=== PATIENT | female | born 1965 | race Caucasian/White ===

== ENCOUNTER 2019-11-17 16:38 | Outpatient (CLI) | payer MEDICARE, SELFPAY ==
--- NOTE | ~2019-11-17 | CT_ITS ---
EXAMINATION: CT abdomen pelvis w con INDICATION: Pelvic and perineal pain TECHNIQUE: Computed tomographic images of the abdomen and pelvis were obtained after the administrati on of 100 cc of Omnipaque 350 intravenous contrast. The dose-length product (DLP) was 1311.48 mGy-cm. Automated exposure control and iterative reconstruction technique were employed. COMPARISON: 09/06/2018 FINDINGS: There are changes of left pneumonectomy. The heart size is normal. There is a small sliding hiatal hernia. The gallbladder is surgically absent. There is focal fatty infiltration of the liver adjacent to the ligamentum teres. The spleen, pancreas, and adrenal glands are normal. The kidneys ar e unremarkable. No pathologically enlarged abdominal or pelvic lymph nodes are identified. There is n o free intraperitoneal gas or evidence of bowel obstruction. Colonic diverticulosis is present withou t evidence of diverticulitis. A bowel surgical anastomosis is again noted in the pelvis. There is mil d lumbar spondylosis. A small fat-containing umbilical hernia is noted. There are changes of hysterec ronda. No definite abnormality of the vaginal remnant or perineum is identified. IMPRESSION: 1. No CT correlate for the patient's symptoms. Reviewed, dictated and finalized at location A.
[2019-11-17 17:41] LABS: Hematocrit 43.6 % (37.0-47.0); Hemoglobin 14.7 g/dL (12.0-15.0); Mean Corpuscular HGB Conc 33.7 g/dl (32-36); Mean Corpuscular Hemoglobin 29.4 pg (26-34); Mean Corpuscular Volume 87.2 fl (80-100); Mean Platelet Volume 9.4 fl (7.4-10.4); Platelet Count Result 303 k/mm3 (150-375); Red Cell Distribution Width 13.2 % (11.5-14.5); White Blood Count 11.1 K/mm3 (4.5-10.0)
[2019-11-17 17:53] LABS: Blood Urea Nitrogen 18 mg/dL (7-17); Calcium 9.3 mg/dL (8.4-10.2); Carbon Dioxide 37 mmol/L (22-30); Chloride 98 mmol/L (98-107); Estimated Glomerular Filt Rate 58; Glucose 112 mg/dL (65-105); Potassium 3.8 mmol/L (3.4-5.0); Sodium 139 mmol/L (137-145)
== END 2019-11-17 16:39 | disposition home or self-care (01) ==
PROVIDERS: PCP Family Medicine; Visit Provider Physician Assistant Medical
DX: R10.2 Pelvic and perineal pain (principal); N95.0 Postmenopausal bleeding
CPT/HCPCS: 36415; 74177; 80048; 85027; Q9967

== ENCOUNTER 2019-11-26 15:15 | Outpatient (CLI) | payer MEDICARE, SELFPAY ==
--- NOTE | ~2019-11-26 | US_ITS ---
EXAMINATION: US pelvic complete w TV DATE: 11/26/2019 15:55 INDICATION: Peroneal pain. Vaginal bleeding. History of total hysterectomy. Comparison:07/12/2015 TECHNIQUE: Multiple transabdominal and endovaginal sonographic images of the pelvis performed. FINDINGS: The uterus and ovaries are surgically absent. No abnormal masses or fluid collections. IMPRESSION: 1. Unremarkable pelvic ultrasound status post total hysterectomy. Reviewed, dictated and finalized at location A.
== END 2019-11-26 15:16 | disposition home or self-care (01) ==
PROVIDERS: PCP Family Medicine; Visit Provider Physician Assistant Medical
DX: R10.2 Pelvic and perineal pain (principal); N95.0 Postmenopausal bleeding
CPT/HCPCS: 76830; 76856

== ENCOUNTER 2020-01-26 16:57 | Outpatient (CLI) | payer MEDICARE, SELFPAY ==
--- NOTE | ~2020-01-26 | XR_ITS ---
XR hip LT min 3V w AP pelvis 01/26/2020 17:33 Indication: Low back and left hip pain Procedure: AP portable view of the pelvis and 3 views left hip Comparison: No prior studies for comparison. Findings: No fracture or traumatic malalignment. Pelvic rings are intact. No significant soft tissue abnormality. Sacral foramen are symmetric. No foreign bodies. Impression: 1: No acute fracture. Reviewed, dictated and finalized at location A. Impression: 1: No acute fracture.
--- NOTE | ~2020-01-26 | XR_ITS ---
XR lumbar spine min 4V 01/26/2020 17:33 Indication: Low back pain Procedure: 5 views lumbar spine Comparison: No prior studies for comparison. Findings: There is mild levocurvature of the lumbar spine. There is disc narrowing at L4-5 and L5-S1. No fracture or traumatic malalignment. Pedicles are intact. Sacral foramen are symmetric. Impression: 1: Mild lumbar spondylosis. Reviewed, dictated and finalized at location A. Impression: 1: Mild lumbar spondylosis.
== END 2020-01-26 16:58 | disposition home or self-care (01) ==
LOC: ANHIMG 17:00
PROVIDERS: PCP Family Medicine; Visit Provider Family Medicine
DX: M79.605 Pain in left leg (principal); M47.896 Other spondylosis, lumbar region
CPT/HCPCS: 72110; 73502

== ENCOUNTER 2020-08-13 12:46 | Outpatient (CLI) | payer MEDICARE, SELFPAY ==
--- NOTE | ~2020-08-13 | XR_ITS ---
XR chest 2V 08/13/2020 13:08 Indication: Shortness of breath Procedure: PA and lateral views of the chest Comparison to multiple prior studies sequentially, with oldest reviewed study dated 11/05/2018. Comparison: Comparison to multiple prior studies sequentially, with oldest reviewed study dated 12/2018. Findings: There are surgical changes of left pneumonectomy. Right lung clear. No pleural effusion, ed jenny or pneumothorax. No acute osseous abnormality. Impression: 1: No acute cardiopulmonary disease. Reviewed, dictated and finalized at location B. 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
== END 2020-08-13 12:47 | disposition home or self-care (01) ==
PROVIDERS: PCP Family Medicine; Visit Provider Nurse Practitioner Family
DX: R06.02 Shortness of breath (principal); R07.89 Other chest pain
CPT/HCPCS: 71046

== ENCOUNTER 2020-09-30 13:43 | Outpatient (CLI) | payer MEDICARE, SELFPAY ==
--- NOTE | 2020-09-30 14:12 | ECHO_ITS ---
Patient Info Name: Drew Roche Age: 55 years : 1965 Gender: Female Ht: 67 in Wt: 245 lbs BSA: 2.34 m2 HR: 77 bpm BP: 118 / 78 mmHg Technical Quality: Good Exam Date: 09/30/2020 2:16 PM Exam Location: [facility] Patient Status: Outpatient Admit Date: 09/30/2020 Staff Ordering Physician: Jose Luis Wong DO Power Nut Runner Operator: Kristofer Miles RDCS, RT Attending Provider: Jose Luis Wong DO Referring Physician: Marvin LEWIS; Exam Type: CA echo doppler color flow Study Info Indications R06.09 - Other forms of dyspnea Complete two-dimensional, color flow and Doppler transthoracic echocardiogram is performed. Summary 1. Complete two-dimensional, color flow and Doppler transthoracic echocardiogram is performed. 2. Left ventricular chamber dimension is normal. 3. Left ventricular systolic function is normal, estimated at 60-65%. 4. There is mildly increased left ventricular wall thickness. 5. The left ventricular diastolic function is grade I diastolic dysfunction. 6. E/e' 8 is minimally elevated. 7. Right ventricular chamber dimension is mildly enlarged. 8. The mitral valve has mildly calcified annulus. 9. There is trace mitral valve regurgitation. 10. There is trace tricuspid valve regurgitation. 11. Mild pulmonary hypertension, estimated pulmonary arterial systolic pressure is 44 mmHg. 12. Normal inferior vena cava with <50% collapse upon inspiration consistent with elevated right atrial pressure, 10 mmHg. 13. There is trace circumferential pericardial effusion with mild amount located posteriorly. Left Ventricle E/e' 8 is minimally elevated. Left ventricular chamber dimension is normal. Left ventricular systolic function is normal, estimated at 60-65%. There is mildly increased left ventricular wall thickness. The left ventricular diastolic function is grade I diastolic dysfunction. Right Ventricle Right ventricular systolic function is normal with normal TAPSE 2.5 cm. Right ventricular chamber dimension is mildly enlarged. Left Atria Left atrial chamber dimension is normal. Right Atria Right atrial chamber dimension is normal. Aortic Valve The aortic valve is trileaflet. There is no aortic valve stenosis. There is no aortic valve regurgitation. Pulmonic Valve There is no pulmonic regurgitation. Mitral Valve The mitral valve has mildly calcified annulus. There is no mitral valve stenosis. There is trace mitral valve regurgitation. Tricuspid Valve There is trace tricuspid valve regurgitation. Mild pulmonary hypertension, estimated pulmonary arterial systolic pressure is 44 mmHg. Pericardium/Pleural There is trace circumferential pericardial effusion with mild amount located posteriorly. Inferior Vena Cava Normal inferior vena cava with <50% collapse upon inspiration consistent with elevated right atrial pressure, 10 mmHg. Aorta The aortic root size at the sinus of Valsalva is normal. Left Ventricular Outflow Tract Name Value Normal LVOT 2D LVOT Diameter 2.1 cm LVOT Doppler LVOT Peak Gradient 1 mmHg LVOT Mean Gradient 1 mmHg
== END 2020-09-30 13:44 | disposition home or self-care (01) ==
PROVIDERS: PCP Family Medicine; Visit Provider Internal Medicine Cardiovascular Disease
DX: R06.09 Other forms of dyspnea (principal)
CPT/HCPCS: 93306

== ENCOUNTER 2020-10-05 15:15 | Outpatient (CLI) | payer MEDICARE, SELFPAY ==
--- NOTE | 2020-10-08 12:47 | WPDHOLTEREM ---
Holter/Event Monitor Holter/Event Monitor Date of procedure: 10/05/20 Procedure Type: 48 hour holter monitor Indications: Dyspnea Conclusion: 1. 48 hour holter monitor on 10/05/20. 2. Underlying rhythm is sinus rhythm. HR range 45-138 bpm; average HR 89 bpm. 3. There are 63 premature supraventricular complexes. No supraventricular tachycardia. 4. No premature ventricular complexes. No ventricular tachycardia. 5. No sinoatrial or atrioventricular blocks. No significant pauses greater than 2 seconds. 6. Patient reports symptoms of tightness, racing heart rate which demonstrate sinus rhythm, HR range 75-94 bpm.
== END 2020-10-05 15:16 | disposition home or self-care (01) ==
LOC: ANHCARD 15:16
PROVIDERS: PCP Family Medicine; Visit Provider Internal Medicine Cardiovascular Disease
DX: R00.0 Tachycardia, unspecified (principal); R06.00 Dyspnea, unspecified
CPT/HCPCS: 93225; 93226

== ENCOUNTER 2020-10-26 12:14 | Outpatient (CLI) | payer MEDICARE, SELFPAY ==
--- NOTE | ~2020-10-26 | CT_ITS ---
EXAMINATION: CT abdomen pelvis w con DATE: 10/26/2020 12:39 INDICATION: Abdominal tenderness. Diffuse lower abdominal pain. TECHNIQUE: Computed tomography (CT) of the abdomen and pelvis was performed with 100 cc Omnipaque 350 intravenous contrast. The dose-length product was 1566.62 mGy-cm. Automated exposure control and ite rative reconstruction technique were employed. COMPARISON: CT dated 11/17/2019. FINDINGS: There are surgical changes consistent with left pneumonectomy. Right lung bases unremarkabl e. Heart size normal. No significant vascular abnormality. No lymphadenopathy. Small hiatal hernia. There are cholecystectomy clips. There is fatty infiltration of the liver. The spleen, adrenal glands and kidneys are unremarkable. There is fatty replacement of the pancreas. Nonobstructive bowel gas p attern. Colonic diverticulosis without evidence for diverticulitis. No acute osseous abnormality. The re is a surgical anastomosis in the pelvis. IMPRESSION: 1. No acute abdominal abnormality. Reviewed, dictated and finalized at location B.
[2020-10-26 13:04] LABS: Basophils Absolute Auto 0.1 K/mm3 (0.0-0.1); Basophils Percent Auto 0.6 % (0.2-1.2); Eosinophils Absolute Auto 0.2 K/mm3 (0-0.3); Hemoglobin 13.4 g/dL (12.0-15.0); Immature Granulocyte Absolute 0.03 K/mm3 (0.00-0.031); Immature Granulocyte Percent A 0.3 % (0-0.5); Lymphocytes Absolute Auto 2.75 K/mm3 (0.9-3.2); Lymphocytes Percent Auto 26.1 % (18.3-44.2); Mean Corpuscular HGB Conc 33.5 g/dl (32-36); Mean Corpuscular Hemoglobin 28.3 pg (26-34); Mean Corpuscular Volume 84.4 fl (80-100); Mean Platelet Volume 8.9 fl (7.4-10.4); Monocytes Absolute Auto 0.6 K/mm3 (0.1-0.6); Monocytes Percent Auto 5.6 % (2.6-8.5); Neutrophils Absolute Auto 6.9 K/mm3 (1.3-6.7); Neutrophils Percent Auto 65.4 % (45.5-73.1); Platelet Count Result 327 k/mm3 (150-375); Red Blood Count 4.74 M/mm3 (4.2-5.4); Red Cell Distribution Width 13.2 % (11.5-14.5); White Blood Count 10.6 K/mm3 (4.5-10.0)
[2020-10-26 13:15] LABS: Alanine Aminotransferase 18 U/L (4-35); Albumin Level 3.9 g/dL (3.5-5.1); Alkaline Phosphatase 147 U/L (38-126); Amylase 47 U/L (30-110); Anion Gap 2 mmol/L (8-16); Aspartate Amino Transferase 27 U/L (14-36); Bilirubin,Total 0.2 mg/dL (0.2-1.3); Blood Urea Nitrogen 14 mg/dL (7-17); Calcium 8.2 mg/dL (8.4-10.2); Carbon Dioxide 32 mmol/L (22-30); Chloride 102 mmol/L (98-107); Estimated Glomerular Filt Rate > 60; Glucose 96 mg/dL (65-105); Lipase 29 U/L (23-300); Sodium 136 mmol/L (137-145)
== END 2020-10-26 12:15 | disposition home or self-care (01) ==
LOC: ANHIMG 12:15
PROVIDERS: PCP Family Medicine; Visit Provider Nurse Practitioner Family
DX: R10.9 Unspecified abdominal pain (principal); R10.819 Abdominal tenderness, unspecified site; R19.7 Diarrhea, unspecified; Z87.19 Personal history of other diseases of the digestive system
CPT/HCPCS: 36415; 74177; 80053; 82150; 83690; 85025; Q9967

== ENCOUNTER 2021-03-04 11:57 | Outpatient (CLI) | payer MEDICARE, SELFPAY ==
[2021-03-04 12:34] LABS: Basophils Absolute Auto 0.1 K/mm3 (0.0-0.1); Basophils Percent Auto 0.6 % (0.2-1.2); Eosinophils Absolute Auto 0.2 K/mm3 (0-0.3); Eosinophils Percent Auto 1.8 % (0-4.4); Hematocrit 42.8 % (37.0-47.0); Hemoglobin 13.8 g/dL (12.0-15.0); Immature Granulocyte Absolute 0.05 K/mm3 (0.00-0.031); Immature Granulocyte Percent A 0.4 % (0-0.5); Lymphocytes Absolute Auto 3.01 K/mm3 (0.9-3.2); Lymphocytes Percent Auto 26.5 % (18.3-44.2); Mean Corpuscular HGB Conc 32.2 g/dl (32-36); Mean Corpuscular Hemoglobin 28.3 pg (26-34); Mean Corpuscular Volume 87.9 fl (80-100); Mean Platelet Volume 9.3 fl (7.4-10.4); Monocytes Absolute Auto 0.7 K/mm3 (0.1-0.6); Monocytes Percent Auto 6.4 % (2.6-8.5); Neutrophils Absolute Auto 7.3 K/mm3 (1.3-6.7); Neutrophils Percent Auto 64.3 % (45.5-73.1); Platelet Count Result 326 k/mm3 (150-375); Red Blood Count 4.87 M/mm3 (4.2-5.4); Red Cell Distribution Width 13.8 % (11.5-14.5); White Blood Count 11.4 K/mm3 (4.5-10.0)
[2021-03-04 13:00] LABS: Alanine Aminotransferase 21 U/L (4-35); Albumin Level 4.1 g/dL (3.5-5.1); Alkaline Phosphatase 152 U/L (38-126); Anion Gap 7 mmol/L (8-16); Aspartate Amino Transferase 23 U/L (14-36); Bilirubin,Total 0.4 mg/dL (0.2-1.3); Blood Urea Nitrogen 14 mg/dL (7-17); Calcium 8.6 mg/dL (8.4-10.2); Carbon Dioxide 30 mmol/L (22-30); Chloride 101 mmol/L (98-107); Cholesterol 180 mg/dL (0-200); Estimated Glomerular Filt Rate > 60; Glucose 111 mg/dL (65-110); HDL Direct 41 mg/dL; Sodium 138 mmol/L (137-145); Triglycerides 171 mg/dL (<150)
[2021-03-04 18:58] LABS: LDL Cholesterol Direct 102 mg/dL
== END 2021-03-04 11:58 | disposition home or self-care (01) ==
PROVIDERS: PCP Family Medicine; Visit Provider Physician Assistant Medical
DX: R00.0 Tachycardia, unspecified (principal); I51.89 Other ill-defined heart diseases; I27.20 Pulmonary hypertension, unspecified; Z13.220 Encounter for screening for lipoid disorders; Z13.6 Encounter for screening for cardiovascular disorders
CPT/HCPCS: 36415; 80053; 80061; 84443; 85025

== ENCOUNTER 2021-05-24 13:19 | Outpatient (CLI) | payer MEDICARE, SELFPAY ==
--- NOTE | ~2021-05-24 | XR_ITS ---
XR chest 2V 05/24/2021 13:46 Indication: Chronic obstructive pulmonary disease. Procedure: PA and lateral views the chest Comparison: Comparison to multiple prior studies sequentially, with oldest reviewed study dated 12/19. Findings: There are changes of left pneumonectomy. Right lung clear. No pneumonia, edema or effusion. No pneumothorax. Impression: 1: No acute cardiopulmonary disease. 2: Status post prior left pneumonectomy. Reviewed, dictated and finalized at location A. 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 2: Status post prior left pneumonectomy.
== END 2021-05-24 13:20 | disposition home or self-care (01) ==
LOC: ANHIMG 13:28
PROVIDERS: PCP Family Medicine; Visit Provider Internal Medicine Critical Care Medicine
DX: J44.9 Chronic obstructive pulmonary disease, unspecified (principal)
CPT/HCPCS: 71046

== ENCOUNTER 2021-07-19 09:38 | Outpatient (CLI) | payer MEDICARE, SELFPAY ==
--- NOTE | ~2021-07-19 | XR_ITS ---
EXAMINATION: XR shoulder LT min 2V EXAM DATE: 07/19/2021 09:59 INDICATION: M25.512 - Pain in left shoulder, worsening. Fall 2 mo ago. TECHNIQUE: The following left shoulder projections obtained: frontal projection with internal rotatio n, frontal projection with external rotation, Grashey, and scapular Y view (4+ views). There is no p rior study for comparison. FINDINGS: There is dense large calcification along the rotator cuff consistent with calcific tendinos is. No evidence of acute or subacute fracture. There is mild glenohumeral joint, moderate acromioclav icular joint primary osteoarthritis. Surgical defect left 6th rib, opacified hemithorax. IMPRESSION: 1. Large dense left rotator cuff calcific tendinosis. 2. Mild to moderate osteoarthritis. Reviewed, dictated and finalized at location B. 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
== END 2021-07-19 09:39 | disposition home or self-care (01) ==
LOC: ANHIMG 09:44
PROVIDERS: PCP Family Medicine; Visit Provider Physician Assistant Medical
DX: M19.012 Primary osteoarthritis, left shoulder (principal)
CPT/HCPCS: 73030

== ENCOUNTER 2021-10-11 15:54 | Outpatient (CLI) | payer MEDICARE, SELFPAY ==
[2021-10-11 16:45] LABS: Alanine Aminotransferase 25 U/L (4-35); Albumin Level 4.2 g/dL (3.5-5.1); Alkaline Phosphatase 164 U/L (38-126); Amylase 55 U/L (30-110); Anion Gap 6 mmol/L (8-16); Aspartate Amino Transferase 24 U/L (14-36); Bilirubin,Total 0.5 mg/dL (0.2-1.3); Blood Urea Nitrogen 15 mg/dL (7-17); Calcium 7.9 mg/dL (8.4-10.2); Carbon Dioxide 31 mmol/L (22-30); Chloride 101 mmol/L (98-107); Estimated Glomerular Filt Rate > 60; Glucose 108 mg/dL (65-110); Lipase 20 U/L (23-300); Potassium 3.5 mmol/L (3.4-5.0); Sodium 138 mmol/L (137-145)
[2021-10-11 16:55] LABS: Basophils Absolute Auto 0.1 K/mm3 (0.0-0.1); Basophils Percent Auto 0.7 % (0.2-1.2); Eosinophils Absolute Auto 0.2 K/mm3 (0-0.3); Eosinophils Percent Auto 1.8 % (0-4.4); Hematocrit 41.8 % (37.0-47.0); Hemoglobin 13.5 g/dL (12.0-15.0); Immature Granulocyte Absolute 0.04 K/mm3 (0.00-0.031); Immature Granulocyte Percent A 0.4 % (0-0.5); Lymphocytes Absolute Auto 2.89 K/mm3 (0.9-3.2); Lymphocytes Percent Auto 28.4 % (18.3-44.2); Mean Corpuscular HGB Conc 32.3 g/dl (32-36); Mean Corpuscular Volume 86.7 fl (80-100); Mean Platelet Volume 9.4 fl (7.4-10.4); Monocytes Absolute Auto 0.6 K/mm3 (0.1-0.6); Monocytes Percent Auto 6.3 % (2.6-8.5); Neutrophils Absolute Auto 6.4 K/mm3 (1.3-6.7); Neutrophils Percent Auto 62.4 % (45.5-73.1); Platelet Count Result 304 k/mm3 (150-375); Red Blood Count 4.82 M/mm3 (4.2-5.4); Red Cell Distribution Width 14.2 % (11.5-14.5); White Blood Count 10.2 K/mm3 (4.5-10.0)
== END 2021-10-11 15:55 | disposition home or self-care (01) ==
LOC: ANHLAB 15:59
PROVIDERS: PCP Family Medicine; Visit Provider Nurse Practitioner Family
DX: R10.9 Unspecified abdominal pain (principal); R19.7 Diarrhea, unspecified; R11.2 Nausea with vomiting, unspecified
CPT/HCPCS: 36415; 80053; 82150; 83690; 85025

== ENCOUNTER 2021-10-24 15:38 | Outpatient (CLI) | payer MEDICARE, SELFPAY ==
--- NOTE | ~2021-10-24 | US_ITS ---
EXAMINATION: US abdomen complete DATE: 10/24/2021 16:32 INDICATION: Left upper quadrant pain, nausea and vomiting TECHNIQUE: Multiple grayscale and Doppler ultrasound images of the abdomen were obtained. COMPARISON: CT, 10/26/2020 FINDINGS: Bowel gas obscures visualization of the pancreas. The pancreas appears to be echogenic, lik leidy due to fatty replacement.The liver demonstrates increased echogenicity, heterogenous echotexture, and decreased through transmission. No surface nodularity. Normal hepatopetal flow in the main ysabel l vein. The gallbladder is surgically absent. The common bile duct is not well demonstrated. There wa s no sonographic Miles sign. The visualized portions of the aorta and inferior vena cava are normal. The right kidney measures 11.6 x 5.6 x 4.6 cm. The left kidney measures 9.5 x 4.8 x 5.5 cm. The kidne ys demonstrate normal parenchymal echogenicity. There is no hydronephrosis. The spleen is normal in a ppearance and measures 12.7 cm. IMPRESSION: 1. No sonographic correlate for the patient's symptoms. Reviewed, dictated and finalized at location F.
== END 2021-10-24 15:39 | disposition home or self-care (01) ==
LOC: ANHIMG 15:40
PROVIDERS: PCP Family Medicine; Visit Provider Nurse Practitioner Family
DX: R10.12 Left upper quadrant pain (principal); R10.9 Unspecified abdominal pain; R11.2 Nausea with vomiting, unspecified; R74.8 Abnormal levels of other serum enzymes
CPT/HCPCS: 76700

== ENCOUNTER 2022-02-09 12:00 | Outpatient (CLI) | payer MEDICARE, SELFPAY ==
--- NOTE | ~2022-02-09 | XR_ITS ---
XR chest 2V DATE: 02/09/2022 12:14 INDICATION: Cough, bronchitis, pleural pain TECHNIQUE: PA and lateral views COMPARISON: 05/24/2021 PA and lateral chest FINDINGS: Status post left thoracotomy and pneumonectomy. Shift of the heart mediastinum leftward. Th ere is compensatory hyperinflation of the right lung, which appears clear. No right pleural effusion. Surgical clips, right upper quadrant of the abdomen. Osteopenia. IMPRESSION: Status post left thoracotomy and pneumonectomy No active cardiopulmonary disease or significant change since 05/24/2021 Reviewed, dictated and finalized at location B.
== END 2022-02-09 12:01 | disposition home or self-care (01) ==
LOC: ANHIMG 12:04
PROVIDERS: PCP Family Medicine; Visit Provider Nurse Practitioner Family
DX: R05.9 Cough, unspecified (principal); R07.81 Pleurodynia; Z98.890 Other specified postprocedural states
CPT/HCPCS: 71046

== ENCOUNTER 2022-08-11 11:17 | Outpatient (CLI) | payer MEDICARE, SELFPAY ==
[2022-08-11 12:05] LABS: Basophils Absolute Auto 0.1 K/mm3 (0.0-0.1); Basophils Percent Auto 0.8 % (0.2-1.2); Eosinophils Absolute Auto 0.2 K/mm3 (0-0.3); Eosinophils Percent Auto 1.9 % (0-4.4); Hematocrit 43.2 % (37.0-47.0); Hemoglobin 13.9 g/dL (12.0-15.0); Immature Granulocyte Absolute 0.07 K/mm3 (0.00-0.031); Immature Granulocyte Percent A 0.6 % (0-0.5); Lymphocytes Percent Auto 22.9 % (18.3-44.2); Mean Corpuscular HGB Conc 32.2 g/dl (32-36); Mean Corpuscular Hemoglobin 27.9 pg (26-34); Mean Corpuscular Volume 86.7 fl (80-100); Mean Platelet Volume 9.6 fl (7.4-10.4); Monocytes Absolute Auto 0.7 K/mm3 (0.1-0.6); Monocytes Percent Auto 6.1 % (2.6-8.5); Neutrophils Percent Auto 67.7 % (45.5-73.1); Platelet Count Result 297 k/mm3 (150-375); Red Blood Count 4.98 M/mm3 (4.2-5.4); Red Cell Distribution Width 14.2 % (11.5-14.5); White Blood Count 11.8 K/mm3 (4.5-10.0)
[2022-08-11 12:17] LABS: Alanine Aminotransferase 39 U/L (6-35); Albumin Level 3.9 g/dL (3.5-5.1); Alkaline Phosphatase 147 U/L (38-126); Anion Gap 5 mmol/L (8-16); Aspartate Amino Transferase 33 U/L (14-36); Bilirubin,Total 0.6 mg/dL (0.2-1.3); Blood Urea Nitrogen 10 mg/dL (7-17); Calcium 8.2 mg/dL (8.4-10.2); Carbon Dioxide 31 mmol/L (22-30); Chloride 102 mmol/L (98-107); Cholesterol 194 mg/dL (0-200); Estimated Glomerular Filt Rate > 60; Glucose 162 mg/dL (65-110); HDL Direct 34 mg/dL; Sodium 138 mmol/L (137-145); Triglycerides 254 mg/dL (<150)
[2022-08-11 12:27] LABS: LDL Cholesterol Direct 102 mg/dL
== END 2022-08-11 11:18 | disposition home or self-care (01) ==
LOC: ANHLAB 11:18
PROVIDERS: PCP Family Medicine; Visit Provider Family Medicine
DX: I50.30 Unspecified diastolic (congestive) heart failure (principal); K76.0 Fatty (change of) liver, not elsewhere classified; Z13.220 Encounter for screening for lipoid disorders; R73.03 Prediabetes
CPT/HCPCS: 36415; 80053; 80061; 82248; 84443; 85025

== ENCOUNTER 2024-01-18 14:30 | Outpatient (CLI) | payer MEDICARE, SELFPAY ==
--- NOTE | ~2024-01-18 | MR_ITS ---
EXAMINATION: MR brain/brain stem wo/w con DATE: 01/18/2024 15:56 INDICATION: Chronic left sided headache TECHNIQUE: Magnetic resonance imaging (MRI) of the brain and brainstem was performed without and with 20 mL Multihance intravenous contrast. Sequences included sagittal and axial T1-weighted SE, axial d iffusion-weighted FS SE, axial 3D SWAN, axial T2-weighted FLAIR, and axial T2-weighted FSE. Postcontr ast axial and coronal T1-weighted SE was obtained. Apparent diffusion coefficient (ADC) maps were cre ated. COMPARISON: CT dated 06/30/2015 FINDINGS: There are no areas of restricted diffusion to suggest acute infarction. Tiny focus of susceptibility artifact in the anterior right frontal lobe consistent with chronic blood products related to microhe morrhage most typically secondary to hypertension. No abnormal intracranial mass lesion. There are no intraparenchymal signal abnormalities seen on the other pulse sequences. The ventricles are symmetri c and normal in size. There are no abnormal extra-axial fluid collections. Flow voids are seen in the cerebral arteries on the T2-weighted sequences consistent with their expected patency. Mild mucosal thickening the bilateral anterior ethmoid sinuses. Visualized orbits and soft tissues are unremarkabl e. There are no areas of abnormal enhancement on the post contrast images. IMPRESSION: 1. No acute intracranial process or abnormally enhancing brain lesions. 2. Single punctate focus of susceptibility artifact in the right frontal lobe consistent with sequela of chronic microhemorrhage such as in the setting of hypertension. Reviewed, dictated and finalized at location A. IMPRESSION: 1. No acute intracranial process or abnormally enhancing brain lesions. 2. Single punctate focus of susceptibility artifact in the right frontal lobe c onsistent with sequela of chronic microhemorrhage such as in the setting of hyp ertension.
== END 2024-01-18 14:31 | disposition home or self-care (01) ==
LOC: ANHIMG 14:34
PROVIDERS: PCP Internal Medicine; Visit Provider Internal Medicine
DX: R51.9 Headache, unspecified (principal); G89.29 Other chronic pain
CPT/HCPCS: 70553; A9577

== ENCOUNTER 2024-12-11 12:58 | Emergency (ER) | payer MEDICARE, SELFPAY ==
--- NOTE | ~2024-12-11 | CT_ITS ---
CT chest abdomen pelvis w con Ordering provider: Mis Hayes PA-C History: 59 years Female with . g-tube site infection, upper abd pain . Comparison: October 26, 2020 Technique: CT chest with IV contrast. CT abdomen and pelvis CT abdomen and pelvis with IV and with or al contrast. Radiation reduction technique utilized.The dose-length product was 1648.61 mGy-cm. 100 m L Omnipaque 350 was given IV. FINDINGS: CHEST: --VISUALIZED THORACIC INLET: Normal. --MEDIASTINUM: Aorta/coronary arteries: The thoracic aorta is normal. Heart/other: The heart is not enlarged. The heart is shifted to the left side. Lymph nodes: No mediastinal or hilar adenopathy. --LUNGS: Status post left pneumonectomy. 3 mm nodule is seen in the right lung base anteriorly. Depen dent atelectasis is seen in the right lung bases posteriorly. No pulmonary masses. No infiltrates or effusions. No pneumothorax. --MUSCULOSKELETAL: Soft tissues: The superficial soft tissues are normal. Bones: Age appropriate degenerative changes of the spine. No suspicious bony lytic or sclerotic lesio ns. ABDOMEN/PELVIS: --MUSCULOSKELETAL: Bones: Age appropriate degenerative changes of the spine. No suspicious bony lytic or sclerotic lesio ns. Chronic compression of the superior endplate of L1 is noted. If Clinically suspicious MRI is advised. Hemangioma of T12 is noted. Superficial soft tissues: The superficial soft tissues are normal. --UPPER ABDOMINAL ORGANS: Liver: Fat infiltration. Gallbladder: Status post cholecystectomy. Spleen: Normal. Stomach/duodenum: Gastrostomy tube. Soft tissue density is seen in the anterior abdominal wall around the tube which may be inflammatory. Clinical correlation advised. Transabdominal definite collection seen. Small sliding hiatus hernia. Pancreas: Atrophic. Adrenals: Normal. Kidneys: Normal. --PELVIC ORGANS: The bladder is normal. No bladder stones. --BOWEL AND MESENTERY: Colon: No evidence of diverticulitis.. Appendix is not demonstrated. Small Bowel: Normal. No obstruction. Peritoneum/mesentery: No free air or free fluid. No mesenteric lymphadenopathy. --RETROPERITONEUM: Mild atheromatous disease of the abdominal aorta. No retroperitoneal lymphadenop athy. IMPRESSION: CHEST: 1. Status post left pneumonectomy. 2. 3 mm nodule seen in the right lung base posteriorly. [address] follow-up advised. ABDOMEN/PELVIS: 1. Minimal thickening of the soft tissues in the anterior abdominal wall around the gastrostomy tube which may be inflammatory. Clinical correlation and Follow-up advised. No intra-abdominal fluid nayeli ection seen. 2. No evidence of appendicitis, diverticulitis or intestinal obstruction. 3. Fat infiltration of the liver. 4. Small sliding hiatus hernia. 5. Atrophic pancreas. Reviewed, dictated and finalized at location A. IMPRESSION: CHEST: 1. Status post left pneumonectomy. 2. 3 mm nodule seen in the right lung base posteriorly. [address] follow-up ad vised. ABDOMEN/PELVIS: 1. Minimal thickening of the soft tissues in the anterior abdominal wall aroun d the gastrostomy tube which may be inflammatory. Clinical correlation and Foll ow-up advised. No intra-abdominal fluid collection seen. 2. No evidence of appendicitis, diverticulitis or intestinal obstruction. 3. Fat infiltration of the liver. 4. Small sliding hiatus hernia. 5. Atrophic pancreas.
[2024-12-11 13:01] VITALS: BP 138/74; PULSE 86; RESP 18; TEMP 37; O2SAT 98
--- OUTSIDE RECORDS SUMMARY | 2024-12-11 13:31 | XMS_ITS | Clinical Summary ---
Author Organization [facility] Address [address] [address] Phone Care Team Providers Care Stocklayer Name Role Phone Dalton Archibald DO Unavailable [phone] Tricia Skinner MD Unavailable [phone] Doug Gage MD Primary Care Provider Davon Scott MD Unavailable [phone] Ron Contreras MD Unavailable Cheng Schulz MD Unavailable Samantha Forman MD Unavailable [phone] Allergies Active Allergy Reactions Criticality Noted Date Comments Aspirin Swelling High 01/08/2017 Intubated for throat swelling, unclear if aspirin or ibuprofen related Metronidazole Hives High 12/01/2020 Ibuprofen Swelling High 01/08/2017 Intubated for throat swelling, unclear if aspirin or ibuprofen related Nsaids Anaphylaxis,Swelling High 12/01/2020 Medications gabapentin (NEURONTIN) 300 MG Capsule take 1 Capsule per G Tube 3 times daily. 11/17/19 17 Active fluticasone-salm eterol (ADVAIR) 500-50 MCG/DOSE AEROSOL POWDER, BREATH ACTIVATED take 1 Puff by inhalation 2 times daily. 01/12/20 17 Active dilTIAZem (CARDIZEM SR) 120 MG CAPSULE SR 12 HR 1 Capsule every morning. Gastric-tube 01/12/20 17 Active albuterol (PROVENTIL, VENTOLIN) (2.5 MG/3ML) 0.083% Nebulizer Soln 1 Vial by Nebulization route 4 times daily. 01/12/20 17 Active OXYGEN CONCENTRATOR by Does not apply route. Use as directed CURRENTLY TAKES 3 LITERS WHEN ACTIVE OR SLEEP OR O2 FALLS BELOW 90% Active Multiple Vitamin (MULTI-VITAMIN PO) by Gastric Tube route daily. Centrum A-Z for women Active EPINEPHrine (EPIPEN) 0.3 MG/0.3ML Solution Auto-injector 0.3 mL by Intramuscular route once as needed for Anaphylaxis for up to 1 dose. 1 mL 10/31/19 23 Active otherIndications :Dysphagia, unspecified type,Status post insertion of percutaneous endoscopic gastrostomy (PEG) tube ([facility]) Isosource 1.5, 138 units, may resume Jevity 1.2 when back in stock. This is due to they are not able to get Jevity 1.2. 138 Units 1 01/31/20 23 Active otherIndications :Dysphagia, unspecified type,Status post insertion of percutaneous endoscopic gastrostomy (PEG) tube ([facility]) wide port adaptor x2 a month. 2 Units 6 01/31/20 23 Active ascorbic acid (VITAMIN C) 250 MG Tablet Take 1 Tablet by mouth daily. Active albuterol 108 (90 Base) MCG/ACT Aerosol Solution take 2 Puffs by inhalation every 6 hours as needed for Wheezing. 8 g 10/03/19 24 Active pregabalin (Lyrica) 50 MG CapsuleIndicatio ns:Neuropathic pain Take 1 Capsule by mouth 3 times daily. 90 Capsule 2 03/13/20 24 Active Nutritional Supplements (Isosource 1.5 Shravan) Liquid by Gastric Tube route 3 times daily. 138 UNITS Active ergocalciferol (VITAMIN D) 81271 UNIT Capsule Take 1 Capsule by mouth once a week for 120 days. 16 Capsule 08/19/19 25 025 Active HYDROcodone-acet aminophen (NORCO) 7.5-325 MG Tablet take 1 tablet by mouth every 4 to 6 hours as needed for pain 09/06/19 25 Active furosemide (LASIX) 20 MG TabletIndication s:Systolic congestive heart failure, unspecified HF chronicity ([facility]) Take 1 Tablet by mouth 2 times daily (with meals). 180 Tablet 1 09/11/19 Active amoxicillin (AMOXIL) 400 MG/5ML Recon Suspension Take 6.3 mL by mouth 2 times daily for 10 days. 126 mL 11/08/19 25 025 Active Problems Problem Noted Date Diagnosed Date History of pneumonectomy left 05/17/2024 Paroxysmal atrial fibrillation 04/24/2024 Status post insertion of per cutaneous endoscopic gastrostomy (PEG) tube 04/24/2024 Chronic respiratory failure 12/18/2021 Chest pain, rule out acute myocardial infarction 12/17/2021 COPD (chronic obstructive pulmonary disease) PAH (pulmonary artery hypertension) 12/17/2021 History of atrial fibrillation 12/17/2021 Primary pulmonary hypertension 12/17/2021 Nontraumatic complete tear of left rotator cuff 09/01/2021 Leukocytosis (leucocytosis) 02/28/2018 Encounters Date Type Department Care Team Description 11/17/2024 Telephone [facility] [address] [place] [phone] Doug Gage MD Referral 11/10/2024 Telephone [facility] [address] [place] [address] Doug Gage MD Referral 11/07/2024 11:45 AM CDT Urgent Care Visit [facility] [address] [place] [phone] Barbara Leon APRN, SAVANNAH Respiratory infection (Primary Dx); Sore throat; Fever, unspecified fever cause Discharge Disposition: Discharged to home or Selfcare 11/07/2024 Travel 10/24/2024 9:45 AM CDT Office Visit [facility] [address] [place] [address] Doug Gage MD Esophageal dysfunction (Primary Dx) Discharge Disposition: Discharged to home or Selfcare 10/24/2024 Travel 09/12/2024 Results Follow-Up [facility] [address] [place] [address] Yanci Rebolledo APRN, CNP XR LUMBAR SPINE MINIMUM 4 VIEWS 09/10/2024 3:45 PM CDT - 09/10/2024 11:59 PM CDT Hospital Encounter [facility]iology [address] [place] [address] Yanci Rebolledo APRN, CNP Discharge Disposition: Discharged to home or Selfcare 09/10/2024 2:45 PM CDT Office Visit [facility] [address] [place] [address] Yanci Rebolledo APRN, CNP Other closed fracture of first lumbar vertebra with routine healing, subsequent encounter (Primary Dx); Systolic congestive heart failure, unspecified HF chronicity (HCC) Discharge Disposition: Discharged to home or Selfcare 09/10/2024 Travel 09/10/2024 MyChart RX Renewal [facility] [address] [place] [address] Doug Gage MD Medication Renewal Reviewed from Last 3 Months Immunizations Immunization Administration Dates Next Due Influenza Vaccine less than 3 yrs 03/14/2023 Influenza Vaccine,unspecified Formulation 2021 Influenza, high-dose, trivalent, PF 04/16/2024 Pneumococcal conjugate PCV20 , polysaccharide OKR251 conjugate, adjuvant, PF 07/17/2024 Family History Medical History Relation Name Comments No Known Problems Daughter 1 No Known Problems Daughter 2 Cancer Father Colon Cancer Father in his 50's Diabetes Father Heart Disease Father Parkinsonism Father No Known Problems Maternal Grandfather Breast Cancer Maternal Grandmother Cancer Maternal Grandmother esophag eal Colon Cancer Maternal Grandmother Other-comment Maternal Grandmother Liver Disease Maternal Uncle Breast Cancer Mother Cancer Mother Diabetes Mother Hypertension Mother Colon Cancer Paternal Aunt Cancer Paternal Grandfather Esophag eal Colon Cancer Paternal Grandfather Parkinsonism Paternal Grandfather Stomach Cancer Paternal Grandfather Heart Disease Paternal Grandmother Stomach Cancer Paternal Grandmother Breast Cancer Sister Cancer Sister Relation Name Status Comments Daughter 1 Alive Daughter 2 Alive Father Maternal Grandfather Maternal Grandmother Maternal Uncle Alive Mother Alive Paternal Aunt Paternal Grandfather Paternal Grandmother Sister Alive Social History Tobacco Use Types Packs/Day Years Used Date Smoking Tobacco: Former Cigarettes 0.5 24 1 983 - 2007 Smokeless Tobacco: Never Tobacco Cessation:Counseling Given: No Alcohol Use Standard Drinks/Week Comments Never 0 (1 standard drink = 0.6 oz pur e alcohol) [facility] Utilities Answer Date Recorded In the past 12 months has e electric, gas, oil, or water company threatened to shut off services in your home? Yes 10/10/2023 Social Connection and Isolation Panel Answer Date Recorded In a typical week, how many times do you talk on the phone with family, friends, or neighbors? More than three times a week 10/10/2023 How often do you get togethe r with friends or relatives? Once a week 10/10/2023 How often do you attend chur ch or synagogue services? More than 4 times per year 10/10/2023 Do you belong to any clubs o r organizations such as yarsani groups, unions, fraternal or athletic groups, or school groups? Yes 10/10/2023 How often do you attend meet ings of the clubs or organizations you belong to? More than 4 times per year 10/10/2023 Are you , , di vorced, , never , or living with a partner? 10/10/2023 AUDIT-C Answer Date Recorded Q1: How often do you have a drink containing alcohol? Never 10/10/2023 Q2: How many drinks containi ng alcohol do you have on a typical day when you are drinking? Patient does not drink Q3: How often do you have si x or more drinks on one occasion? Never 10/10/2023 Overall Financial Resource Strain (CARDIA) Answe r Date Recorded How hard is it for you to pa y for the very basics like food, housing, medical care, and heating? Somewhat hard 10/10/2023 PHQ-2 Answer Date Recorded Total Score - Questions 1-9 0 08/2022 [facility] Occupat ional Health - Occupational Stress Questionnaire Answer Date Recorded Do you feel stress - tense, restless, nervous, or anxious, or unable to sleep at night because your mind is troubled all the time - these days? To some extent 10/10/2023 Exercise Vital Sign Answer Date Recorde d On average, how many days pe r week do you engage in moderate to strenuous exercise (like a brisk walk)? 5 days 10/10/2023 On average, how many minutes do you engage in exercise at this level? 30 min 10/10/2023 Hunger Vital Sign Answer Date Recorded Within the past 12 months, y ou worried that your food would run out before you got the money to buy more. Never true 10/10/19 24 Within the past 12 months, t he food you bought just didn't last and you didn't have money to get more. Never true 10/10/2023 PRAPARE - Transportation Answer Date Re corded In the past 12 months, has l ack of transportation kept you from medical appointments or from getting medications? No 09/30 In the past 12 months, has l ack of transportation kept you from meetings, work, or from getting things needed for daily living? No 10/10/2023 Housing Stability Vital Sign Answer Galileo e Recorded In the last 12 months, was t here a time when you were not able to pay the mortgage or rent on time? No 10/10/2023 In the last 12 months, how many places have you lived? 1 10/10/2023 In the last 12 months, was t here a time when you did not have a steady place to sleep or slept in a [place] (including now)? No 10/10/2023 Education Answer Date Recorded What is the highest level of school you have completed or the highest degree you have received? Bachelor's degree (e.g., BA, AB, BS) 04/03/2023 Sexually Active Control Partners Comments Not Currently Male Comments No Sex and Gender Information Value Date Recorded Sex Assigned at Not on file Legal Sex Female 7:48 AM SOLICITOR PATENT Gender Identity Not on file Sexual Orientation Not on file Last Filed Vital Signs Vital Sign Reading Time Taken Comments Blood Pressure 128/76 11/07/2024 11:45 AM CDT Pulse 96 11/07/2024 11:45 AM CDT Temperature 37.2 C (99 F) 11/07/2024 11:45 AM CDT dayquil at 0700 hours Respiratory Rate 18 11/07/2024 11:4 5 AM CDT Oxygen Saturation 97% 11/07/2024 11: 45 AM CDT Inhaled Oxygen Concentration - - Weight 101.5 kg (223 lb 11.2 oz) 10/24/2024 9:37 AM CDT Height 170.2 cm (5' 7) 10/24/2024 9:37 AM CDT Body Mass Index 35.04 10/24/2024 9:37 AM CDT Plan of Treatment Upcoming Encounters Date Type Department Care Team (Late st Contact Info) Description 05/05/2025 1:00 PM SOLICITOR PATENT Office Visit [facility] [place] [address] [place] [phone] Sandra Pierce, TILE FINISHER, [facility] [address] [place] [address] Health Maintenance Due Date Last Done Comments Hepatitis C Virus (HCV) Screening 1965 TdaP Immunization 1965 Hepatitis B Immunization (1 of 3 - 19+ 3-dose series) 1984 Cologuard 2010 Immunochemical Fecal Occult Blood 2010 Zoster Immunization (1 of 2) 2015 Mammogram 04/23/2024 04/23/2023, 11/23/2021, 01/18/2018 Colonoscopy 06/12/2029 06/12/2024, 06/12/2024 Colorectal Cancer Screening 06/12/2029 Respiratory Syncytial Virus (RSV) Immunization (Adult) (1 - 1-dose 75+ series) 2040 Influenza Immunization Completed 4, 03/14/2023, 04/13/2022 SARS-COV-2 Immunization Completed 04/16/20 24, 05/30/2021, 05/09/2021 Pneumococcal Immunization (5 0+ years) Completed 07/17/2024 Pneumococcal Immunization Combined Discontinued 07/17/2024 Human Papillomavirus (HPV) Immunization Aged Out No longer eligible based on patient's age to complete this topic Meningococcal Immunization (ACWY) Aged Out No longer eligible based on patient's age to complete this topic Rotavirus Immunization Aged Out No lo nger eligible based on patient's age to complete this topic Medical Devices Implanted Type Area Cigar Bander Hand Device Identifier Shelf Expiration Date Model / Serial / Lot [place] Nichole Patel 4.19s98ly Absb Sft [employer] - [id number] Implanted:Qty: 1 on 09/01/2021 by Hima Orozco MD at [facility] IMPLANT Left: Shoulder [employer] 07/01/2024 [id number] / [id number] / [id number] Procedures Procedure Name Priority Date/Time Associated Diagnosis Comments POC SARS-COV-2 BY MOLECULAR Routine 11/07/2024 12:10 PM CDT Sore throat Fever, unspecified fever cause POC GROUP A STREP BY MOLECULAR Routine 11/07/2024 11:52 AM CDT Sore throat IN-HOME CONSULT 09/25/2024 12:00 AM CDT XR LUMBAR SPINE MINIMUM 4 VIEWS Routine 09/10/2024 4:15 PM CDT Other closed fracture of first lumbar vertebra with routine healing, subsequent encounter MALI DIAG BILATERAL DIGITAL W CAD W PREETI Routine 04/23/2023 2:40 PM CDT Mass of right breast, unspecified quadrant from Last 3 Months or Most Recently Relevant to Health Maintenance Results * POC SARS-COV-2 BY MOLECULAR (11/07/2024 12:10 PM CDT) SARSCOV2 Negative Negative, INVALID PROCEDURE CONTROL Valid 11/07/2024 12:1 0 PM CDT Barbara Leon APRN, [employer] POINT OF CARE TEST ING (MANUAL) Final Result * POC GROUP A STREP BY MOLECULAR (11/07/2024 11:52 AM CDT) STREP A DNA Negative Negative, Invalid PROCEDURE CONTROL Valid 11/07/2024 11:5 2 AM CDT us Barbara Leon APRN, [employer] POINT OF CARE TEST ING (MANUAL) Final Result * IN-HOME CONSULT (09/25/2024 12:00 AM CDT) 09/25/2024 us Provider Scan GENERIC SCAN ORDERS CONSULT Pavithra l Result SCAN * XR LUMBAR SPINE MINIMUM 4 VIEWS (09/10/2024 4:15 PM CDT) Anatomical Region Laterality Modality Spine, L-spine N/A Digital Radiogra phy 09/10/2024 4:49 PM CDT Impressions 09/10/2024 4:52 PM CDT IMPRESSION: L1 compression fracture appears similar to previous. No definite new pathology is seen Narrative 09/10/2024 4:52 PM CDT EXAM DESCRIPTION: XR LUMBAR SPINE MINIMUM 4 VIEWS REASON FOR STUDY: F/U after L1 spinal Fx x 1 week ago. Pt states pain has worsened, numbness/tingling in bilat thighs. TECHNIQUE: 5 radiographic view(s) of the lumbar spine. COMPARISON: 09/04/2024 FINDINGS: Visualization is somewhat hampered by overlying soft tissues and osteopenia. Partial compression of the superior endplate of L1 is again noted similar to previous. No new compression fracture is identified. Minor facet arthropathy is seen of the lower lumbar spine. THIS IS AN ELECTRONICALLY VERIFIED FINAL REPORT 09/10/2024 4:49 PM - Electronically signed by Inderjit Luna M.D. KH: JELANI Report ID: [id number] Reading Location: [id number] Procedure Note Inderjit Luna MD - 09/10/2024 EXAM DESCRIPTION: XR LUMBAR SPINE MINIMUM 4 VIEWS REASON FOR STUDY: F/U after L1 spinal Fx x 1 week ago. Pt states pain has worsened, numbness/tingling in bilat thighs. TECHNIQUE: 5 radiographic view(s) of the lumbar spine. COMPARISON: 09/04/2024 FINDINGS: Visualization is somewhat hampered by overlying soft tissues and osteopenia. Partial compression of the superior endplate of L1 is again noted similar to previous. No new compression fracture is identified. Minor facet arthropathy is seen of the lower lumbar spine. THIS IS AN ELECTRONICALLY VERIFIED FINAL REPORT 09/10/2024 4:49 PM - Electronically signed by Inderjit Luna M.D. KH: JELANI Report ID: [id number] Reading Location: [id number] IMPRESSION: L1 compression fracture appears similar to previous. No definite new pathology is seen us Yanci N Oehl TILE FINISHER, [employer]EN[employer]AN IMG DIAGNOSTIC ORDERABLES Final Result * MALI DIAG BILATERAL DIGITAL W CAD W PREETI (04/23/2023 2:40 PM CDT) Anatomical Region Laterality Modality breast Bilateral Mammography 04/23/2023 1:40 PM CDT Narrative 04/23/2023 3:42 PM CDT - MALI DIAG BILATERAL DIGITAL W CAD W PREETI - MALI US BREAST LIMITED MARIA E BILATERAL DIGITAL DIAGNOSTIC MAMMOGRAM 3D/2D WITH CAD WITH MEDIOLATERAL OBLIQUE CRANIOCAUDAL AND TARGETED BILATERAL ULTRASOUND: 04/23/2023 The study was acquired using digital technology and interpreted from soft copy. Current study was also evaluated with ICAD version 7.2. 2D digital mammographic views, as well as 3D digital tomosynthesis were performed in the CC and MLO projections. CLINICAL: Diagnostic study. Palpable lump right breast for about one month. Patient reports a left breast bump as well near axilla; technologist notes a red pimple type area at the skin in this area. Weight loss of 40 pounds since last mammogram. Patient states left nipple inversion is chronic, but the right nipple inverts intermittently. Extra care taken while positioning due patient's g-tube. No personal history of cancer. Mother and sister with breast cancer. COMPARISONS: Comparison is made to exam dated: 11/23/2021 [facility]. BREAST TISSUE:The tissue of both breasts is predominantly fatty. FINDINGS: DIAGNOSTIC BILATERAL MAMMOGRAM Markers are placed at the site of the palpable foci in both breasts. No mammographic abnormality is appreciated associated with the markers. There are no significant masses or calcifications are seen in either breast on the mammogram. Postoperative changes noted bilaterally. A biopsy marker clip is present in the left breast. TARGETED BILATERAL BREAST ULTRASOUND Targeted RIGHT breast ultrasound was performed in the regions of interest. At the 12 o'clock position 4 cm from the nipple, the 12 o'clock position 8 cm from the nipple and the 12 o'clock position 9 cm from the nipple there are multiple sonographic lesions with similar characteristics. These are smooth oval hyperechoic lesions without evidence of color flow. No posterior acoustical shadowing or enhancement is present. There is no evidence of color flow. These have the appearance of lipomas. The lesion at the 4 cm from the nipple area measures 9 mm. The lesion at the 8 cm from the nipple measures 1.7 cm. The lesion at the 12 o'clock position 8 cm from the nipple measures 2.4 cm. Targeted LEFT breast ultrasound was performed in the region of interest. At the left axilla there is a hypoechoic lesion with a hyperechoic periphery located within the skin. It measures approximately 5 mm x 4 mm x 2 mm. The patient reports recent drainage from the area. A tract may be visualized to the skin surface. This has the appearance of a sebaceous cyst. IMPRESSION: OVERALL STUDY BIRADS: 2 BENIGN Right breast palpable area correlates as multiple right breast lipomas and is benign. Left breast palpable area correlates as a collapsing sebaceous cyst and is benign. There is no mammographic or sonographic evidence of malignancy. A 1 year screening mammogram is recommended. The results and recommendations were discussed with the patient. Electronically signed by: Milli Greco M.D. ab/:04/23/2023 15:31:11 Recruitment Intern(s): RT Lori(R)([facility]), [facility]; SID Penny, [facility] letter sent: Normal Exam Abnormal History Reading location: [facility] OVERALL STUDY BIRADS: 2 Benign Procedure Note Milli Greco MD - 04/23/2023 - MALI DIAG BILATERAL DIGITAL W CAD W PREETI - MALI US BREAST LIMITED MARIA E BILATERAL DIGITAL DIAGNOSTIC MAMMOGRAM 3D/2D WITH CAD WITH MEDIOLATERAL OBLIQUE CRANIOCAUDAL AND TARGETED BILATERAL ULTRASOUND: 04/23/2023 The study was acquired using digital technology and interpreted from soft copy. Current study was also evaluated with ICAD version 7.2. 2D digital mammographic views, as well as 3D digital tomosynthesis were performed in the CC and MLO projections. CLINICAL: Diagnostic study. Palpable lump right breast for about one month. Patient reports a left breast bump as well near axilla; technologist notes a red pimple type area at the skin in this area. Weight loss of 40 pounds since last mammogram. Patient states left nipple inversion is chronic, but the right nipple inverts intermittently. Extra care taken while positioning due patient's g-tube. No personal history of cancer. Mother and sister with breast cancer. COMPARISONS: Comparison is made to exam dated: 11/23/2021 [facility]. BREAST TISSUE:The tissue of both breasts is predominantly fatty. FINDINGS: DIAGNOSTIC BILATERAL MAMMOGRAM Markers are placed at the site of the palpable foci in both breasts. No mammographic abnormality is appreciated associated with the markers. There are no significant masses or calcifications are seen in either breast on the mammogram. Postoperative changes noted bilaterally. A biopsy marker clip is present in the left breast. TARGETED BILATERAL BREAST ULTRASOUND Targeted RIGHT breast ultrasound was performed in the regions of interest. At the 12 o'clock position 4 cm from the nipple, the 12 o'clock position 8 cm from the nipple and the 12 o'clock position 9 cm from the nipple there are multiple sonographic lesions with similar characteristics. These are smooth oval hyperechoic lesions without evidence of color flow. No posterior acoustical shadowing or enhancement is present. There is no evidence of color flow. These have the appearance of lipomas. The lesion at the 4 cm from the nipple area measures 9 mm. The lesion at the 8 cm from the nipple measures 1.7 cm. The lesion at the 12 o'clock position 8 cm from the nipple measures 2.4 cm. Targeted LEFT breast ultrasound was performed in the region of interest. At the left axilla there is a hypoechoic lesion with a hyperechoic periphery located within the skin. It measures approximately 5 mm x 4 mm x 2 mm. The patient reports recent drainage from the area. A tract may be visualized to the skin surface. This has the appearance of a sebaceous cyst. IMPRESSION: OVERALL STUDY BIRADS: 2 BENIGN Right breast palpable area correlates as multiple right breast lipomas and is benign. Left breast palpable area correlates as a collapsing sebaceous cyst and is benign. There is no mammographic or sonographic evidence of malignancy. A 1 year screening mammogram is recommended. The results and recommendations were discussed with the patient. Electronically signed by: Milli Greco M.D. ab/:04/23/2023 15:31:11 Recruitment Intern(s): RT Lori(R)(M), [facility]; SID Penny, [facility] letter sent: Normal Exam Abnormal History Reading location: [facility] OVERALL STUDY BIRADS: 2 Benign Doug Gage MD IMG MAMMO ORDERABLES Final Re sult from Last 3 Months or Most Recently Relevant to Health Maintenance Insurance MEDICARE C WELLCARE MEDICARE C WELLCARE Advance Directives * Full Code (Latest Code Status on File) Date Activated Date Inactivated Comments 12/18/2021 12:02 AM 12/19/2021 4:41 PM CPR-Full Tr eatment: FULL ARREST: Attempt Resuscitation/CPR wit intubation and mechanical ventilation. PRE-ARREST: Use entire range of life support measures to stabilize the patient. Care Teams Stocklayer Relationship Specialty Start Date End Date Doug Gage MD [address] [address] PCP - General Family Medicine 04/03/23 Dalton Archibald DO Gastroenterology 06/28/15 Tricia Skinner MD Internal Medicine 03/10/22 Davon Scott MD [address] [place] [address] Consulting Physician Gastroenterology 01/18/23 Ron Contreras MD [address] [place] [address] Consulting Physician Pulmonary Disease 02/26/24 Cheng Schulz MD [facility] [address] Consulting Physician Colon and Rectal Surgery 04/17/24 Samantha Forman MD 2 [facility] [address] [address] Consulting Physician Internal Medicine 05/06/24
--- OUTSIDE RECORDS SUMMARY | 2024-12-11 13:31 | XMS_ITS | Clinical Summary ---
Author Organization [facility] Address [address] [place] [address] Care Team Providers Care Fishing Boat Mate Name Role Phone Jax Sheriff MD Primary Care Provider [phone] Source Comments [facility],non-owned Affiliates and Associated Physician Practices is amultiple site organization consisting of ambulatory clinics and hospital sitesin [place], [place], [place] and [place]. This disclosure is being madepursuant to the Care Everywhere program and may not contain all information available regarding this patient. Last updated 18.[facility] Allergies Active Allergy Reactions Criticality Noted Date Comments Aspirin Angioedema High 01/08/2017 Intubated for throat swelling, unclear if aspirin or ibuprofen related Enovarx-Ibuprofen Angioedema High 01/08/2017 Intubated for throat swelling, unclear if aspirin or ibuprofen related Metronidazole Skin Reactions,Angioedema High 01/08/2017 Nsaids Swelling High 12/01/2020 Medications * Be aware that medications may not be up to date on this document. Alwaysverify current medications with the patient. fluticasone-salme terol (ADVAIR DISKUS) 500-50 MCG/DOSE inhaler Inhale 1 (one) puff by mouth q12h 7 Active albuterol (PROVENTIL;VENTOL IN) (2.5 MG/3ML) 0.083% nebulizer solution 2.5 (two and one-half) mg 4X/day PRN (Wheezing) 7 Active milnacipran (SAVELLA) 50 MG tablet Take 1 (one) tablet by mouth BID 7 Active dilTIAZem ER 12hr 120 MG capsule Take 1 (one) capsule by mouth 2 times daily 7 Active EPINEPHrine (EPIPEN) 0.3 MG/0.3ML auto-injector pen Inject 0.3 mL into muscle ONCE 7 Active furosemide (LASIX) 20 MG tablet Take 1 (one) tablet by mouth 2 times daily 3 7 Active gabapentin (NEURONTIN) 300 MG capsule Take 1 (one) capsule by mouth 2 times daily 0 7 Active Vitamins-Lipotrop ics (multiple vitamin) capsule Take by mouth once daily Active ascorbic acid (Vitamin C) 250 MG tablet Take 1 (one) tablet by mouth once daily Active ondansetron, disintegrating, (Zofran ODT) 8 MG tablet TAKE 1 TABLET BY MOUTH EVERY 12 HOURS NEEDED FOR NAUSEA AND VOMITING 3 Active oxyCODONE, immediate release, (Roxicodone) 5 MG tabletIndications :S/P percutaneous endoscopic gastrostomy (PEG) tube placement (HCC) Take 1 (one) tablet by mouth every 6 hours as needed 8 tablet 3 Active buPROPion SR 12hr (Wellbutrin-SR) 150 MG tablet Take 1 (one) tablet by mouth 2 times daily 3 Active Active Problems Problem Noted Date Diagnosed Date S/P percutaneous endoscopic gastrostomy (PEG) tube placement 11/21/2022 Preoperative examination 08/23/2022 Esophageal dysmotility 06/06/2022 Chronic respiratory failure 12/18/2021 COPD (chronic obstructive pulmonary disease) Primary pulmonary hypertension 12/17/2021 History of atrial fibrillation 12/17/2021 Elevated white blood cell count 01/08/2017 Fibromyalgia 01/08/2017 Unstable angina 03/08/2016 Immunizations Immunization Administration Dates Next Due INFLUENZA VACCINE 04/13/2022 Family History Medical History Relation Name Comments Cancer - Breast Mother Cancer - Prostate Paternal Grandfather Cancer - Colon Paternal Grandmother Cancer - Breast Sister Relation Name Status Comments Mother Paternal Grandfather Paternal Grandmother Sister Social History Tobacco Use Types Packs/Day Years Used Date Smoking Tobacco: Former Cigarettes 0.5 24.7 0 07/02/1982 - 2007 Smokeless Tobacco: Never Tobacco Cessation:Counseling Given: Not Answered Alcohol Use Standard Drinks/Week Comments No 0 (1 standard drink = 0.6 oz pur e alcohol) AUDIT-C Answer Date Recorded Q1: How often do you have a drink containing alcohol? Never 11/21/2022 Q2: How many drinks containi ng alcohol do you have on a typical day when you are drinking? Patient does not drink Q3: How often do you have si x or more drinks on one occasion? Never 11/21/2022 PHQ-2 Answer Date Recorded PHQ2 TOTAL SCORE 0 07/07/2022 Comments No Sex and Gender Information Value Date Recorded Sex Assigned at Female 06/16/2022 10:15 PM MEASUREMENT SPECIALIST Legal Sex Female 5:51 AM MEASUREMENT SPECIALIST Gender Identity Female 06/16/2022 10:15 PM MEASUREMENT SPECIALIST Sexual Orientation Straight 06/16/2022 10 :15 PM MEASUREMENT SPECIALIST Last Filed Vital Signs Vital Sign Reading Time Taken Comments Blood Pressure 112/80 12/14/2022 10:38 AM CDT Pulse 89 12/14/2022 10:38 AM CDT Temperature 36.7 C (98 F) 12/14/2022 10:38 AM CDT Respiratory Rate 20 11/23/2022 11:07 AM CDT Oxygen Saturation 95% 12/14/2022 10:38 AM CDT Inhaled Oxygen Concentration 32% 11/22/2022 8 :38 PM CDT Weight 117.5 kg (259 lb) 12/14/2022 10:38 AM CDT Height 170.2 cm (5' 7) 12/14/2022 10:38 AM CDT Body Mass Index 40.57 12/14/2022 10:38 AM CDT Plan of Treatment Health Maintenance Due Date Last Done Comments COLOGUARD (AGES 45-75) - COLON CA SCREENING 1965 COLON MONITORING 1965 COLONOSCOPY - COLON CA SCREENING 1965 CT COLONOGRAPHY - COLON CA SCREENING 1965 Colorectal Cancer Screening 1965 FIT - COLON CA SCREENING 1965 FLEX SIG - COLON CA SCREENING 1965 LIPID TESTING 1965 HIV SCREENING 1980 HEPATITIS C SCREENING 02/26/1983 DTAP/TDAP/TD VACCINES (1 - Tdap) 1984 HEPATITIS B VACCINE (1 of 3 - 19+ 3-dose series) 1984 PNEUMOCOCCAL VACCINE 50+ (1 of 2 - PCV) 1984 PAP SMEAR 1986 PAP with HPV 1995 ZOSTER VACCINE (1 of 2) 2015 COVID-19 VACCINE (1 - season) 2024 DEPRESSION SCREENING 07/02/2024 08/14/2022 MEDICARE AWV CALENDAR YEAR 2024 MAMMOGRAM 04/23/2025 04/23/2023 SCREENING FOR DIABETES 08/19/2027 , 08/19/2024, 02/11/2023, Additional history exists INFLUENZA VACCINE Completed 04/16/2024, , 04/13/2022 HIB VACCINE Aged Out No longer eligi ble based on patient's age to complete this topic HPV VACCINE Aged Out No longer eligi ble based on patient's age to complete this topic MENINGOCOCCAL (Group B) VACCINE SHARED DECISION-MAKING Aged Out No longer eligible based on patient's age to complete this topic MENINGOCOCCAL GROUPS A/C/Y/W VACCINE Aged Out No longer eligible based on patient's age to complete this topic Medical Devices Explanted Type Area Laser Printing Operator Device Identifier Shelf Expiration Date Model / Serial / Lot Stent Esph 23mm 18.5fr 10cm 78cm 23mm Implanted:Qty : 1 on 08/23/2022 by Robert Brumfield i, MD at [facility] Explanted:Qty : 1 on 08/24/2022 by Robert Brumfield i, MD at [facility] N/A: Esophagus CogniK Scimed 08/10/2023 [id number] / / [id number] Procedures Procedure Name Priority Date/Time Associated Diagnosis Comments BASIC METABOLIC PANEL (CALCIUM TOTAL) STAT 11/23/2022 6:23 AM CDT S/P percutaneous endoscopic gastrostomy (PEG) tube placement from Last 3 Months or Most Recently Relevant to Health Maintenance Results * (ABNORMAL) BASIC METABOLIC PANEL (CALCIUM TOTAL) (11/23/2022 6:23 AM T) BUN 9 7 - 26 mg/dL 11/23/2022 7:11 AM [facility] Creatinine 0.71 0.56 - 0.96 mg/dL 11/23/2022 7:11 AM [facility] Sodium 142 136 - 145 mmol/L 11/23/2022 7:11 AM [facility] Potassium 3.7 3.5 - 4.5 mmol/L 11/23/2022 7:11 AM [facility] Chloride 98 98 - 107 mmol/L 11/23/2022 7:11 AM [facility] CO2 35(H) 22 - 29 mmol/L 11/23/2022 7:11 AM [facility] Glucose 209(H) 70 - 115 mg/dL 11/23/2022 7:11 AM [facility] Calcium 8.3(L) 8.4 - 10.2 mg/dL 11/23/2022 7:11 AM [facility] Anion Gap 13 8 - 18 11/23/2022 7:11 AM [facility] BUN/Creatinine Ratio 13 7 - 23 11/23/2022 7:11 AM [facility] Osmolality Calculated 299 270 - 300 mOsm/kg 11/23/2022 7:11 AM [facility] eGFR by CKD-EPI >90 >=90 mL/min/1.7 3 m2 11/23/2022 7:11 AM [facility] Blood BLOOD SPECIMEN / Unknown Lab Venipuncture / Unknown 11/23/2022 6:23 AM CDT 11/23/2022 6:48 AM [facility] us Petra Dugan MD LAB - CHEMISTRY ORDERABLES Fi nal Result [facility] [address] [place] [id number], [place] [phone] from Last 3 Months or Most Recently Relevant to Health Maintenance Additional Health Concerns Infection Onset Date Last 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 02/09/2017 Insurance [facility] Advance Directives * Full Code (Latest Code Status on File) Date Activated Date Inactivated Comments 08/23/2022 2:43 PM 08/25/2022 1:37 PM Care Teams Fishing Boat Mate Relationship Specialty Start Date End Date Jax Sheriff MD [address] [place] [address] PCP - General 01/08/17
--- OUTSIDE RECORDS SUMMARY | 2024-12-11 13:31 | XMS_ITS | Encounter Summary ---
Author Organization [facility] Address [address] [place] [address] Phone Care Team Providers Care Veterinary Practitioner Name Role Phone Dalton Archibald DO Unavailable [phone] Jax Sheriff MD Primary Care Provider [phone] Scott Blevins MD Unavailable Unavai Scott Martinez MD Unavailable Unavai Tricia Olguin MD Unavailable [phone] Doug Gage MD Primary Care Provider [phone] Davon Scott MD Unavailable [phone] Ron Contreras MD Unavailable Cheng Schulz MD Unavailable Samantha Forman MD Unavailable [phone] Reason for Referral * Radiology Services (Routine) - Closed Specialty Diagnoses / Procedures Referred By Rylie greenberg Referred To Contact Radiology Diagnoses Pre-op exam Procedures EKG 12 LEAD Hima Orozco MD Phone: tel: fax: Referral ID Status Reason Start Date Expiration Date Visits Re quested Visits Authorized [id number] Closed 08/20/2021 1 1 AL WIRER * Radiology Services (Routine) - Closed Specialty Diagnoses / Procedures Referred By Rylie greenberg Referred To Contact Radiology Diagnoses Pre-op exam Procedures XR CHEST 2 VIEWS Hima Orozco MD Phone: tel: fax: Referral ID Status Reason Start Date Expiration Date Visits Re quested Visits Authorized [id number] Closed 08/20/2021 1 1 AL WIRER Encounter Details Date Type Department Care Team (Latest Contact Info) Description 08/20/2021 Transcribe Orders [facility] Patient Access Admitting [address] [place] [address] Hima Orozco MD [address] [place], [place] [id number] Pre-op exam (Primary Dx) Social History Tobacco Use Types Packs/Day Years Used Date Smoking Tobacco: Former Cigarettes Q uit: 2005 Smokeless Tobacco: Never Alcohol Use Standard Drinks/Week Comments No 0 (1 standard drink = 0.6 oz pur e alcohol) PHQ-2 Answer Date Recorded PHQ-2 Score 0 2019 Sexually Active Control Partners Comments Not Currently Comments No Sex and Gender Information Value Date Recorded Sex Assigned at Not on file Legal Sex Female 7:48 AM SIGNAL WIRER Gender Identity Not on file Sexual Orientation Not on file COVID-19 Exposure Response Date Recorded In the last month, have you been in contact with someone who was confirmed or suspected to have Coronavirus / COVID-19? No / Unsure 08/22/2021 1:32 PM SIGNAL WIRER documented as of this encounter Plan of Treatment Upcoming Encounters Date Type Department Care Team (Late st Contact Info) Description 05/05/2025 1:00 PM SIGNAL WIRER Office Visit [facility] - [facility]iology - [place] [address] [place] [address] Sandra Pierce APRN, CIGARETTE FILTER INSPECTOR [address] [place] [address] documented as of this encounter Results * XR CHEST 2 VIEWS (08/22/2021 1:56 PM SIGNAL WIRER) Anatomical Region Laterality Modality Chest N/A Digital Radiogra phy 08/23/2021 9:07 AM SIGNAL WIRER Impressions 08/23/2021 9:10 AM SIGNAL WIRER IMPRESSION: Opacification of the left hemithorax with associated volume loss is in keeping with stated history of left pneumonectomy. The right lung is clear. Narrative 08/23/2021 9:10 AM SIGNAL WIRER EXAM DESCRIPTION: XR CHEST 2 VIEWS REASON FOR STUDY: Preoperative evaluation for rotator cuff surgery. History of left lung removal. TECHNIQUE: Frontal and lateral radiographic views of the chest acquired. COMPARISON: Cervical spine radiographs 04/20/2021 FINDINGS: LUNGS/PLEURA: There is complete opacification of the left hemithorax with associated ipsilateral mediastinal shift indicating volume loss in keeping with history of left pneumonectomy. No large right pleural effusion. No pneumothorax. HEART/MEDIASTINUM: Heart size is unable to be evaluated secondary to mediastinal shift. HARDWARE/LINES/TUBES: None. BONES: Postsurgical change in the left posterior ribs . OTHER: No other significant finding. THIS IS AN ELECTRONICALLY VERIFIED FINAL REPORT 08/23/2021 9:07 AM - Electronically signed by Pablo Concepcion M.D. LB: HERMILO Report ID: [id number] Reading Location: [place] [address] Procedure Note Pablo Concepcion MD - 08/23/2021 EXAM DESCRIPTION: XR CHEST 2 VIEWS REASON FOR STUDY: Preoperative evaluation for rotator cuff surgery. History of left lung removal. TECHNIQUE: Frontal and lateral radiographic views of the chest acquired. COMPARISON: Cervical spine radiographs 04/20/2021 FINDINGS: LUNGS/PLEURA: There is complete opacification of the left hemithorax with associated ipsilateral mediastinal shift indicating volume loss in keeping with history of left pneumonectomy. No large right pleural effusion. No pneumothorax. HEART/MEDIASTINUM: Heart size is unable to be evaluated secondary to mediastinal shift. HARDWARE/LINES/TUBES: None. BONES: Postsurgical change in the left posterior ribs . OTHER: No other significant finding. THIS IS AN ELECTRONICALLY VERIFIED FINAL REPORT 08/23/2021 9:07 AM - Electronically signed by Pablo Concepcion M.D. LB: LB Report ID: [id number] Reading Location: [id number] IMPRESSION: Opacification of the left hemithorax with associated volume loss is in keeping with stated history of left pneumonectomy. The right lung is clear. Hima Orozco MD IMG DIAGNOSTIC ORDERABLES Final Result * EKG 12 LEAD (08/22/2021 1:44 PM SIGNAL WIRER) Ventricular Rate BPM EXTERNAL EKG Atrial Rate BPM EXTERNAL EKG P-R Interval 150 ms EXTERNAL EKG QRS Duration 88 ms EXTERNAL EKG Q-T Duration 374 ms EXTERNAL EKG QTC CALCULATION 453 ms EXTERNAL EKG P [place] 96 degrees EXTERNAL EKG R [place] -29 degrees EXTERNAL EKG T [place] -1 degrees EXTERNAL EKG 08/22/2021 1:44 PM SIGNAL WIRER Impressions EXTERNAL EKG - 08/24/2021 10:43 AM SIGNAL WIRER Sinus rhythm Leftward axis Inferior infarct - age undetermined Possible anterior infarct - age undetermined Low QRS voltages in precordial leads Comparison Summary: No serial comparison made Summary: Abnormal ECG Confirmed by Jared Covarrubias [id number] on 08/24/2021 10:43:45 AM Narrative Procedure Note Yuli Coleman MD - 08/24/2021 IMPRESSION: Sinus rhythm Leftward axis Inferior infarct - age undetermined Possible anterior infarct - age undetermined Low QRS voltages in precordial leads Comparison Summary: No serial comparison made Summary: Abnormal ECG Confirmed by Jared Covarrubias [id number] on 08/24/2021 10:43:45 AM Hima Orozco MD IMG ECG ORDERABLES Final Result EXTERNAL EKG * ERYTHROCYTE SEDIMENTATION RATE (ESR) (08/20/2021 12:58 PM SIGNAL WIRER) ESR (SED RATE, ERYTHROCYTE SEDIMENTATION RATE) 17 <30 mm/h 08/20/2021 1:46 PM SIGNAL WIRER [facility] Comment: Patients presenting with increased level of fibrinogen, gamma globulins, or abnormally shaped RBCs could affect the results for the erythrocyte sedimentation rate (ESR). Results should be clinically correlated. Blood Venipuncture / Unknown 08/20/2021 12:58 PM SIGNAL WIRER 08/20/2021 1:35 PM SIGNAL WIRER Hima Orozco MD HEMATOLOGY ORDERABLES Final Resu lt Performing Organization Address [facility] Co de Phone Number [facility] [address] [place] [address] * (ABNORMAL) C-REACTIVE PROTEIN (CRP) QUANT (08/20/2021 12:58 PM SIGNAL WIRER) C-REACTIVE PROTEIN 1.31(H) <0.50 mg/dL 08/20/2021 1:54 PM SIGNAL WIRER [facility] Blood Venipuncture / Unknown 08/20/2021 12:58 PM SIGNAL WIRER 08/20/2021 1:35 PM SIGNAL WIRER us Hima Orozco MD CHEMISTRY ORDERABLES Final Resul t Performing Organization Address [facility] de Phone Number [facility] [address] [place] [address] * (ABNORMAL) CMP (COMPREHENSIVE METABOLIC PANEL) (08/20/2021 12:58 PM SIGNAL WIRER) SODIUM 140 136 - 144 mmol/L 08/20/2021 1:54 PM SIGNAL WIRER [facility] POTASSIUM 4.1 3.5 - 5.1 mmol/L 08/20/2021 1:54 PM SIGNAL WIRER [facility] CHLORIDE 102 100 - 110 mmol/L 08/20/2021 1:54 PM SIGNAL WIRER [facility] CO2, VENOUS 27 22 - 32 mmol/L 08/20/2021 1:54 PM SIGNAL WIRER [facility] ANION GAP 15.1 8.0 - 20.0 mmol/L 08/20/2021 1:54 PM [facility] GLUCOSE 127(H) 70 - 99 mg/dL 08/20/2021 1:54 PM [facility] BUN 14 6 - 20 mg/dL 08/20/2021 1:54 PM [facility] CREATININE, BLOOD 0.85 0.60 - 1.10 mg/dL 08/20/2021 1:54 PM [facility] BUN/CREATININE RATIO 16 12 - 20 ratio 08/20/2021 1:54 PM [facility] TOTAL PROTEIN 6.9 6.0 - 8.3 g/dL 08/20/2021 1:54 PM [facility] ALBUMIN 4.1 3.5 - 5.2 g/dL 08/20/2021 1:54 PM [facility] Comment: The colormetric methods used for the determination of Albumin may lead to falsely elevated test results in patients suffering from renal failure or insufficiency due to interference with other proteins. A/G RATIO 1.5 1.0 - 2.0 08/20/2021 1:54 PM [facility] CALCIUM 8.7(L) 8.9 - 10.3 mg/dL 08/20/2021 1:54 PM [facility] T BILI 0.3 <=1.2 mg/dL 08/20/2021 1:54 PM [facility] SGOT (AST) 21 <=32 U/L 08/20/2021 1:54 PM [facility] SGPT (ALT) 26 <=41 U/L 08/20/2021 1:54 PM [facility] ALKALINE PHOSPHATASE 145(H) 35 - 105 U/L 08/20/2021 1:54 PM [facility] GFR, EST. NONAFRICAN >60 >=60 08/20/2021 1:54 PM [facility] GFR, EST. >60 >=60 022 1:54 PM [facility] Comment: Creatinine Clearance is the preferred criteria for selecting drug dose adjustments in renally impaired patients. The GFR is provided as additional pertinent clinical information. GFR is reported in mL/min/1.73 sq m. IS THE PATIENT REQUIRED TO BE FASTING? No 08/20/2021 1:54 PM SIGNAL WIRER [facility] Blood Venipuncture / Unknown 08/20/2021 12:58 PM SIGNAL WIRER 08/20/2021 1:35 PM SIGNAL WIRER us Hima Orozco MD CHEMISTRY ORDERABLES Final Resul t [facility] [address] [place] [address] documented in this encounter Visit Diagnoses Diagnosis Pre-op exam- Primary Preoperative examination, unspecified Pre-op exam Preoperative examination, unspecified Pre-op exam Preoperative examination, unspecified documented in this encounter Additional Health Concerns Infection Onset Date Last Indicated Resolved Time COVID - 19 07/29/2022 07/29/2022 08/08/2022 12:1 6 AM SIGNAL WIRER Influenza 07/29/2022 07/29/2022 08/05/2022 12:1 8 AM SIGNAL WIRER COVID - 19 10/03/2023 10/03/2023 10/03/2023 5:20 PM CDT COVID - 19 05/02/2024 05/02/2024 05/02/2024 2:00 PM CDT Respiratory Rule-Out 05/17/2024 05/17/2024 024 12:13 PM SIGNAL WIRER COVID - 19 05/17/2024 05/17/2024 05/17/2024 12:1 1 PM SIGNAL WIRER Respiratory Rule-Out 08/05/2024 08/05/2024 025 12:51 PM SIGNAL WIRER COVID - 19 11/07/2024 11/07/2024 11/07/2024 12:2 5 PM CDT Assessment Noted Time PHQ-9 Depression Total Score: 0 03/28/20 18 2:15 PM CDT documented as of this encounter Care Teams Veterinary Practitioner Relationship Specialty Start Date End Date Jax Sheriff MD [address] [place] [address] PCP - General Family Medicine 02/18/18 04/02/23 Doug Gage MD [address] [address] PCP - General Family Medicine 04/03/23 Dalton Archibald DO Gastroenterology 06/28/15 Scott Blevins MD [address] [place] [address] Supervisor Beater Room Cardiovascular Disease - Cardiology 02/02/22 05/07/24 Scott Blevins MD [address] [place] [address] Consulting Physician Cardiovascular Disease - Cardiology 03/10/22 08/20/24 Tricia Skinner MD [address] [place] [address] Internal Medicine 03/10/22 Davon Scott MD [address] [place] [address] Consulting Physician Gastroenterology 01/18/23 Ron Contreras MD [address] [place] [address] Consulting Physician Pulmonary Disease 02/26/24 Cheng Schulz MD [address] [address] Consulting Physician Colon and Rectal Surgery 04/17/24 Smaantha Forman MD [address] [place] [address] Consulting Physician Internal Medicine 05/06/24 documented as of this encounter
--- OUTSIDE RECORDS SUMMARY | 2024-12-11 13:32 | XMS_ITS | Encounter Summary ---
Author Organization [facility] Address [address] [place] [address] Phone Care Team Providers Care Restaurant Operations Manager Name Role Phone Dalton Archibald DO Unavailable [phone] Tricia Skinner MD Unavailable [phone] Doug Gage MD Primary Care Provider [phone] Davon Scott MD Unavailable [phone] Ron Contreras MD Unavailable Cheng Schulz MD Unavailable Samantha Forman MD Unavailable [phone] Reason for Visit * Reason Onset Date Comments Referral 11/17/2024 Encounter Details Date Type Department Care Team ([facility] st Contact Info) Description 11/17/2024 Telephone [facility] Call Center [address] [place] [address] Doug Gage MD [address] [address] Referral Social History Tobacco Use Types Packs/Day Years Used Date Smoking Tobacco: Former Cigarettes 0.5 24 1 983 - 2006 Smokeless Tobacco: Never Alcohol Use Standard Drinks/Week Comments Never 0 (1 standard drink = 0.6 oz pur e alcohol) [facility] Utilities Answer Date Recorded In the past 12 months has th [employer], gas, oil, or water company threatened to [...] 10/10/2023 How often do you attend chur or holiness services? More than 4 times per year 10/10/2023 Do you belong to any clubs o r organizations such as jehovah's witness groups, unions, fraternal or athletic groups, or [...] Recorded Total Score - Questions 1-9 0 10/0 08/2022 [facility] of Occupat ional Health - Occupational Stress [...] place to sleep or slept in a intermediate (including now)? No 10/10/2023 Education Answer Date Recorded What is the highest level of school you have completed or the highest degree you have received? Bachelor's degree (e.g., BA, AB, BS) 04/03/2023 Sexually Active Control Partners Comments Not Currently Male Comments No Sex and Gender Information Value Date Recorded Sex Assigned at Not on file Legal Sex Female 7:48 AM LADDER OPERATOR Gender Identity Not on file Sexual Orientation Not on file documented as of this encounter Miscellaneous Notes * Telephone Encounter - Charline Fields RN - 11/17/2024 3:28 PM CDT Faxed GI referral successfully to number provided. * Telephone Encounter - Mary Monge RN - 11/17/2024 2:20 PM CDT Situation: Referral Background: Vincent, Gis Technician with [facility] Gastroenterology is contacting PCP office. He is calling as their office is still awaiting referral. Referral can be faxed to [phone]. Assessment:N/A Recommendation: Upon chart review after call, External Gastroenterology Referral was last placed on11/10/2024. Encounter routed to Office Nurse Pool to notify. Please review and fax referral at earliest convenience. documented in this encounter Plan of Treatment Upcoming Encounters Date Type Department Care Team (Late st Contact Info) Description 05/05/2025 1:00 PM LADDER OPERATOR Office Visit [facility] [address] [facility] [place] [address] Sandra Pierce APRN, BLOCKER AND POLISHER GOLD WHEEL [address] [place] [phone] documented as of this encounter Visit Diagnoses Not on filedocumented in this encounter Additional Health Concerns Assessment Noted Time PHQ-9 Depression Total Score: 0 07/04/19 24 1:47 PM LADDER OPERATOR documented as of this encounter Care Teams Restaurant Operations Manager Relationship Specialty Start Date End Date Doug Gage MD [address] [address] PCP - General Family Medicine 04/03/23 Datlon Archibald DO Gastroenterology 06/28/15 Tricia Skinner MD Internal Medicine 03/10/22 Davon Scott MD [address] [place] [address] Consulting Physician Gastroenterology 01/18/23 Ron Contreras MD [address] [place] [phone] Consulting Physician Pulmonary Disease 02/26/24 Cheng Schulz MD #[address] [address] Consulting Physician Colon and Rectal Surgery 04/17/24 Samantha Forman MD [address] [address] Consulting Physician Internal Medicine 05/06/24 documented as of this encounter
--- OUTSIDE RECORDS SUMMARY | 2024-12-11 13:59 | XMS_ITS | Clinical Summary ---
Author Organization [facility] Address [address] [address] Phone Care Team Providers Care Coffee Blender Name Role Phone Dalton Archibald DO Unavailable [phone] Tricia Skinner MD Unavailable [phone] Doug Gage MD Primary Care Provider Davon Scott MD Unavailable [phone] Ron Contreras MD Unavailable Cheng Schulz MD Unavailable Samantha Forman MD Unavailable Allergies Active Allergy Reactions Criticality Noted Date [...] insertion of percutaneous endoscopic gastrostomy (PEG) tube ([facility]) Isosource 1.5, 138 units, may resume Jevity 1.2 when back in stock. This is due to they are not able to get Jevity 1.2. 138 Units 1 01/31/20 23 Active otherIndications :Dysphagia, unspecified type,Status post insertion of percutaneous endoscopic gastrostomy (PEG) tube ([facility]) wide port adaptor x2 a month. 2 [...] daily. 138 UNITS Active ergocalciferol (VITAMIN D) 61173 UNIT Capsule Take 1 Capsule by mouth once a week for 120 days. 16 Capsule 08/19/19 25 025 Active HYDROcodone-acet aminophen (NORCO) 7.5-325 MG Tablet take 1 tablet by mouth every 4 to 6 hours as needed for pain 09/06/19 25 Active furosemide (LASIX) 20 MG TabletIndication s:Systolic congestive heart failure, unspecified HF chronicity ([facility]) Take 1 Tablet by mouth 2 times [...] Type Department Care Team Description 11/17/2024 Telephone [facility] Central Call Center [address] [place] [address] Doug Gage MD Referral 11/10/2024 Telephone [facility] Central Call Center [address] [place] [address] Doug Gage MD Referral 11/07/2024 11:45 AM CDT Urgent Care Visit [facility] [address] [place] [phone] Barbara Leon APRN, SAVANNAH Respiratory infection (Primary Dx); Sore throat; Fever, unspecified fever cause Discharge Disposition: Discharged to home or Selfcare 11/07/2024 Travel 10/24/2024 9:45 AM CDT Office Visit [facility] [address] [place] [address] Doug Gage MD Esophageal dysfunction (Primary Dx) Discharge Disposition: Discharged to home or Selfcare 10/24/2024 Travel 09/12/2024 Results Follow-Up [facility] [address] [place] [address] Yanci Rebolledo APRN, CNP XR LUMBAR SPINE MINIMUM 4 VIEWS 09/10/2024 3:45 PM CDT - 09/10/2024 11:59 PM CDT Hospital Encounter [facility] [address] [place] [address] Yanci Rebolledo APRN, CNP Discharge Disposition: Discharged to home or Selfcare 09/10/2024 2:45 PM CDT Office Visit [facility] [address] [place] [address] Yanci Rebolledo APRN, CNP Other closed fracture of first lumbar vertebra with routine healing, subsequent encounter (Primary Dx); Systolic congestive heart failure, unspecified HF chronicity (HCC) Discharge Disposition: Discharged to home or Selfcare 09/10/2024 Travel 09/10/2024 MyChart RX Renewal [facility] [address] [place] [address] Doug Gage MD Medication Renewal Reviewed from Last 3 Months Immunizations Immunization Administration Dates Next Due Influenza Vaccine less than 3 yrs 03/14/2023 Influenza Vaccine,unspecified Formulation 2021 Influenza, high-dose, trivalent, PF 04/16/2024 Pneumococcal conjugate PCV20 , polysaccharide [id number] conjugate, adjuvant, PF 07/17/2024 Family History Medical [...] drink = 0.6 oz pur e alcohol) [facility] Utilities Answer Date Recorded In the past [...] often do you attend chur ch or evangelical services? More than 4 times per year 10/10/2023 Do you belong to any clubs o r organizations such as alevism groups, unions, fraternal or athletic groups, or [...] Total Score - Questions 1-9 0 08/2022 [facility] of Occupat ional Health - Occupational Stress [...] place to sleep or slept in a half-way (including now)? No 10/10/2023 Education Answer Date Recorded What is the highest level of school you have completed or the highest degree you have received? Bachelor's degree (e.g., BA, AB, BS) 04/03/2023 Sexually Active Control Partners Comments Not Currently Male Comments No Sex and Gender Information Value Date Recorded Sex Assigned at Not on file Legal Sex Female 7:48 AM COMPUTER NUMERICAL CONTROL PROGRAMMER Gender Identity Not on file Sexual Orientation [...] st Contact Info) Description 05/05/2025 1:00 PM COMPUTER NUMERICAL CONTROL PROGRAMMER Office Visit [facility] [place] [address] [place] [phone] Sandra Pierce, CYBER DEFENSE INCIDENT RESPONDER, SENIOR LOSS CONTROL SPECIALIST [address] [place] [address] Health Maintenance Due Date Last [...] this topic Medical Devices Implanted Type Area Slot Machine Floor Person Device Identifier Shelf Expiration Date Model / Serial / Lot Avon Nichole Patel 4.44x33mn Absb Sft [employer] - [id number] Implanted:Qty: 1 on 09/01/2021 by Hima Orozco MD at [facility] IMPLANT Left: Shoulder [employer] 07/01/2024 [id number] -2 / [id number] -2 / [id number] Procedures Procedure Name Priority Date/Time Associated Diagnosis [...] 12:1 0 PM CDT Barbara Leon APRN, SENIOR LOSS CONTROL SPECIALIST POINT OF CARE TEST ING (MANUAL) Final Result * POC GROUP A STREP BY MOLECULAR (11/07/2024 11:52 AM CDT) STREP A DNA Negative Negative, Invalid PROCEDURE CONTROL Valid 11/07/2024 11:5 2 AM CDT us Barbara Leon APRN, SENIOR LOSS CONTROL SPECIALIST POINT OF CARE TEST ING (MANUAL) Final [...] Inderjit Luna M.D. KH: JELANI Report ID: [id number] Reading Location: [id number] Procedure Note Inderjit Luna MD - 09/10/2024 [...] Inderjit Luna M.D. KH: JELANI Report ID: [id number] Reading Location: [id number] IMPRESSION: L1 compression fracture appears similar to previous. No definite new pathology is seen us Yanci N Oehl CYBER DEFENSE INCIDENT RESPONDER, SENIOR LOSS CONTROL SPECIALIST IMG DIAGNOSTIC ORDERABLES Final Result * MLAI DIAG BILATERAL DIGITAL W CAD W PREETI [...] is made to exam dated: 11/23/2021 [facility]. BREAST TISSUE:The tissue of both breasts is [...] signed by: Milli Greco M.D. ab/:04/23/2023 15:31:11 Segment Assembler(s): RT Lori(R)(M[facility]; SID Penny, [facility] letter sent: Normal Exam Abnormal History Reading location: [facility] OVERALL STUDY BIRADS: 2 Benign Procedure Note [...] is made to exam dated: 11/23/2021 [facility]. BREAST TISSUE:The tissue of both breasts is [...] signed by: Milli Greco M.D. ab/:04/23/2023 15:31:11 Segment Assembler(s): RT Lori(R)(M), [facility]; SID Penny, [facility] letter sent: Normal Exam Abnormal History Reading location: [facility] OVERALL STUDY BIRADS: 2 Benign Doug Gage [...] measures to stabilize the patient. Care Teams Coffee Blender Relationship Specialty Start Date End Date Doug Gage MD [address] [address] [address] PCP - General Family Medicine 04/03/23 Dalton Archibald DO Gastroenterology 06/28/15 Tricia Skinner MD Internal Medicine 03/10/22 Davon Scott MD [address] [place] [address] Consulting Physician Gastroenterology 01/18/23 Ron Contreras MD [address] [place] [address] Consulting Physician Pulmonary Disease 02/26/24 Cheng Schulz MD [facility] [address] Consulting Physician Colon and Rectal Surgery 04/17/24 Samantha Forman MD 2 [facility] [address] [address] Consulting Physician Internal Medicine 05/06/24
--- OUTSIDE RECORDS SUMMARY | 2024-12-11 13:59 | XMS_ITS | Clinical Summary ---
Author Organization [facility] Address [address] [facility] [place] [address] Care Team Providers Care Handbag Designer Name Role Phone Jax Sheriff MD Primary Care Provider [phone] Source Comments [facility],non-owned Affiliates and Associated Physician Practices is amultiple site organization consisting of ambulatory clinics and hospital sitesin [place], [place]. This disclosure is being madepursuant to the Care Everywhere program and may not contain all information available regarding this patient. Last updated 18.[facility] Allergies Active Allergy Reactions Criticality Noted Date [...] Sex Assigned at Female 06/16/2022 10:15 PM TUBE TRAILER FILLER Legal Sex Female 5:51 AM TUBE TRAILER FILLER Gender Identity Female 06/16/2022 10:15 PM TUBE TRAILER FILLER Sexual Orientation Straight 06/16/2022 10 :15 PM TUBE TRAILER FILLER Last Filed Vital Signs Vital Sign Reading [...] this topic Medical Devices Explanted Type Area Hazmat Truck Driver Device Identifier Shelf Expiration Date Model / Serial / Lot Stent Esph 23mm 18.5fr 10cm 78cm 23mm Implanted:Qty : 1 on 08/23/2022 by Robert Brumfield i, MD at [facility] Explanted:Qty : 1 on 08/24/2022 by Robert Brumfield i, MD at [facility] N/A: Esophagus Avtodoria Scimed 08/10/2023 [id number] / / [id number] Procedures Procedure Name Priority Date/Time Associated Diagnosis Comments BASIC METABOLIC PANEL (CALCIUM TOTAL) STAT 11/23/2022 6:23 AM CDT S/P percutaneous endoscopic gastrostomy (PEG) tube placement from Last 3 Months or Most Recently Relevant to Health Maintenance Results * (ABNORMAL) BASIC METABOLIC PANEL (CALCIUM TOTAL) (11/23/2022 6:23 AM T) BUN 9 7 - 26 mg/dL 11/23/2022 7:11 AM [facility] Creatinine 0.71 0.56 - 0.96 mg/dL 11/23/2022 7:11 AM [facility] Sodium 142 136 - 145 mmol/L 11/23/2022 7:11 AM [facility] Potassium 3.7 3.5 - 4.5 mmol/L 11/23/2022 7:11 AM [facility] Chloride 98 98 - 107 mmol/L 11/23/2022 7:11 AM [facility] CO2 35(H) 22 - 29 mmol/L 11/23/2022 7:11 AM [facility] Glucose 209(H) 70 - 115 mg/dL 11/23/2022 7:11 AM [facility] Calcium 8.3(L) 8.4 - 10.2 mg/dL 11/23/2022 7:11 AM [facility] Anion Gap 13 8 - 18 11/23/2022 7:11 AM [facility] BUN/Creatinine Ratio 13 7 - 23 11/23/2022 7:11 AM [facility] Osmolality Calculated 299 270 - 300 mOsm/kg 11/23/2022 7:11 AM [facility] eGFR by CKD-EPI >90 >=90 mL/min/1.7 3 m2 11/23/2022 7:11 AM [facility] Blood BLOOD SPECIMEN / Unknown Lab Venipuncture / Unknown 11/23/2022 6:23 AM CDT 11/23/2022 6:48 AM [facility] us Petra Dugan MD LAB - CHEMISTRY ORDERABLES Fi nal Result [facility] [address] [place] [phone], [place] [phone] from Last 3 Months or Most Recently Relevant to Health Maintenance Additional Health Concerns Infection Onset Date Last 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 02/09/2017 Insurance [facility] Advance Directives * Full Code (Latest Code Status on File) Date Activated Date Inactivated Comments 08/23/2022 2:43 PM 08/25/2022 1:37 PM Care Teams Handbag Designer Relationship Specialty Start Date End Date Jax Sheriff MD [address] [place] [address] PCP - General 01/08/17
--- OUTSIDE RECORDS SUMMARY | 2024-12-11 13:59 | XMS_ITS | Encounter Summary ---
Author Organization [facility] Address [address] [place] [address] Phone Care Team Providers Care Chair Name Role Phone Dalton Archibald DO Unavailable [phone] Jax Sheriff MD Primary Care Provider [phone] Scott Blevins MD Unavailable Unavai Scott Martinez MD Unavailable Unavai Tricia Olguin MD Unavailable [phone] Doug Gage MD Primary Care Provider [phone] Davon Scott MD Unavailable Ron Contreras MD Unavailable Cheng Schulz MD Unavailable Samantha Forman MD Unavailable [phone] Reason for Referral * Radiology Services (Routine) - Closed Specialty Diagnoses / Procedures Referred By Rylie greenberg Referred To Contact Radiology Diagnoses Pre-op exam Procedures EKG 12 LEAD Hima Orozco MD Phone: tel: fax: Referral ID Status Reason Start Date Expiration Date Visits Re quested Visits Authorized [id number] Closed 08/20/2021 1 1 [employer]OR OF ADVERTISING SALES * Radiology Services (Routine) - Closed Specialty Diagnoses / Procedures Referred By Rylie greenberg Referred To Contact Radiology Diagnoses Pre-op exam Procedures XR CHEST 2 VIEWS Hima Orozco MD Phone: tel: fax: Referral ID Status Reason Start Date Expiration Date Visits Re quested Visits Authorized [id number] Closed 08/20/2021 1 1 [employer]VERTISING [employer] Encounter Details Date Type Department Care Team (Latest Contact Info) Description 08/20/2021 Transcribe Orders [facility][note 3] Patient Access Admitting [address] [place] [address] Hima Orozco MD [address] [place], [place] [id number] Pre-op exam (Primary Dx) Social History Tobacco [...] on file Legal Sex Female 7:48 AM DIRECTOR OF ADVERTISING SALES Gender Identity Not on file Sexual Orientation Not on file COVID-19 Exposure Response Date Recorded In the last month, have you been in contact with someone who was confirmed or suspected to have Coronavirus / COVID-19? No / Unsure 08/22/2021 1:32 PM DIRECTOR OF ADVERTISING SALES documented as of this encounter Plan of Treatment Upcoming Encounters Date Type Department Care Team (Late st Contact Info) Description 05/05/2025 1:00 PM DIRECTOR OF ADVERTISING SALES Office Visit [facility] - [facility]iology - [place] [address] [place] [address] Sandra Pierce APRN, SALES AGENT FINANCIAL REPORT SERVICE [address] [place] [address] documented as of this encounter Results * XR CHEST 2 VIEWS (08/22/2021 1:56 PM DIRECTOR OF ADVERTISING SALES) Anatomical Region Laterality Modality Chest N/A Digital Radiogra phy 08/23/2021 9:07 AM DIRECTOR OF ADVERTISING SALES Impressions 08/23/2021 9:10 AM DIRECTOR OF ADVERTISING SALES IMPRESSION: Opacification of the left hemithorax with associated volume loss is in keeping with stated history of left pneumonectomy. The right lung is clear. Narrative 08/23/2021 9:10 AM DIRECTOR OF ADVERTISING SALES EXAM DESCRIPTION: XR CHEST 2 VIEWS REASON [...] Pablo Concepcion M.D. LB: HERMILO Report ID: [id number] Reading Location: [place] [address] Procedure Note Pablo Concepcion MD - 08/23/2021 [...] Pablo Concepcion M.D. LB: LB Report ID: [id number] Reading Location: [id number] IMPRESSION: Opacification of the left hemithorax with associated volume loss is in keeping with stated history of left pneumonectomy. The right lung is clear. Hima Orozco MD IMG DIAGNOSTIC ORDERABLES Final Result * EKG 12 LEAD (08/22/2021 1:44 PM DIRECTOR OF ADVERTISING SALES) Ventricular Rate BPM EXTERNAL EKG Atrial Rate BPM EXTERNAL EKG P-R Interval 150 ms EXTERNAL EKG QRS Duration 88 ms EXTERNAL EKG Q-T Duration 374 ms EXTERNAL EKG QTC CALCULATION 453 ms EXTERNAL EKG P Mcgehee 96 degrees EXTERNAL EKG R Mcgehee -29 degrees EXTERNAL EKG T Mcgehee -1 degrees EXTERNAL EKG 08/22/2021 1:44 PM DIRECTOR OF ADVERTISING SALES Impressions EXTERNAL EKG - 08/24/2021 10:43 AM DIRECTOR OF ADVERTISING SALES Sinus rhythm Leftward axis Inferior infarct - age undetermined Possible anterior infarct - age undetermined Low QRS voltages in precordial leads Comparison Summary: No serial comparison made Summary: Abnormal ECG Confirmed by Jared Covarrubias [id number] on 08/24/2021 10:43:45 AM Narrative Procedure Note Yuli Coleman MD - 08/24/2021 IMPRESSION: Sinus rhythm Leftward axis Inferior infarct - age undetermined Possible anterior infarct - age undetermined Low QRS voltages in precordial leads Comparison Summary: No serial comparison made Summary: Abnormal ECG Confirmed by Jared Covarrubias [id number] on 08/24/2021 10:43:45 AM Hima Orozco MD IMG ECG ORDERABLES Final Result EXTERNAL EKG * ERYTHROCYTE SEDIMENTATION RATE (ESR) (08/20/2021 12:58 PM DIRECTOR OF ADVERTISING SALES) ESR (SED RATE, ERYTHROCYTE SEDIMENTATION RATE) 17 <30 mm/h 08/20/2021 1:46 PM DIRECTOR OF ADVERTISING SALES [facility] Comment: Patients presenting with increased level of fibrinogen, gamma globulins, or abnormally shaped RBCs could affect the results for the erythrocyte sedimentation rate (ESR). Results should be clinically correlated. Blood Venipuncture / Unknown 08/20/2021 12:58 PM DIRECTOR OF ADVERTISING SALES 08/20/2021 1:35 PM DIRECTOR OF ADVERTISING SALES Hima Orozco MD HEMATOLOGY ORDERABLES Final Resu lt Performing Organization Address [facility] Co de Phone Number [facility] [address] [place] [address] * (ABNORMAL) C-REACTIVE PROTEIN (CRP) QUANT (08/20/2021 12:58 PM DIRECTOR OF ADVERTISING SALES) C-REACTIVE PROTEIN 1.31(H) <0.50 mg/dL 08/20/2021 1:54 PM DIRECTOR OF ADVERTISING SALES [facility] Blood Venipuncture / Unknown 08/20/2021 12:58 PM DIRECTOR OF ADVERTISING SALES 08/20/2021 1:35 PM DIRECTOR OF ADVERTISING SALES us Hima Orozco MD CHEMISTRY ORDERABLES Final Resul t Performing Organization Address [facility] de Phone Number [facility] [address] [place] [address] * (ABNORMAL) CMP (COMPREHENSIVE METABOLIC PANEL) (08/20/2021 12:58 PM DIRECTOR OF ADVERTISING SALES) SODIUM 140 136 - 144 mmol/L 08/20/2021 1:54 PM DIRECTOR OF ADVERTISING SALES [facility] POTASSIUM 4.1 3.5 - 5.1 mmol/L 08/20/2021 1:54 PM DIRECTOR OF ADVERTISING SALES [facility] CHLORIDE 102 100 - 110 mmol/L 08/20/2021 1:54 PM DIRECTOR OF ADVERTISING SALES [facility] CO2, VENOUS 27 22 - 32 mmol/L 08/20/2021 1:54 PM DIRECTOR OF ADVERTISING SALES [facility] ANION GAP 15.1 8.0 - 20.0 mmol/L 08/20/2021 1:54 PM [facility] GLUCOSE 127(H) 70 - 99 mg/dL 08/20/2021 1:54 PM [facility] BUN 14 6 - 20 mg/dL 08/20/2021 1:54 PM [facility] CREATININE, BLOOD 0.85 0.60 - 1.10 mg/dL 08/20/2021 1:54 PM [facility] BUN/CREATININE RATIO 16 12 - 20 ratio 08/20/2021 1:54 PM [facility] TOTAL PROTEIN 6.9 6.0 - 8.3 g/dL 08/20/2021 1:54 PM [facility] ALBUMIN 4.1 3.5 - 5.2 g/dL 08/20/2021 1:54 PM [facility] Comment: The colormetric methods used for the determination of Albumin may lead to falsely elevated test results in patients suffering from renal failure or insufficiency due to interference with other proteins. A/G RATIO 1.5 1.0 - 2.0 08/20/2021 1:54 PM [facility] CALCIUM 8.7(L) 8.9 - 10.3 mg/dL 08/20/2021 1:54 PM [facility] T BILI 0.3 <=1.2 mg/dL 08/20/2021 1:54 PM [facility] SGOT (AST) 21 <=32 U/L 08/20/2021 1:54 PM [facility] SGPT (ALT) 26 <=41 U/L 08/20/2021 1:54 PM [facility] ALKALINE PHOSPHATASE 145(H) 35 - 105 U/L 08/20/2021 1:54 PM [facility] GFR, EST. NONAFRICAN >60 >=60 08/20/2021 1:54 PM [facility] GFR, EST. >60 >=60 022 1:54 PM [facility] Comment: Creatinine Clearance is the preferred criteria for selecting drug dose adjustments in renally impaired patients. The GFR is provided as additional pertinent clinical information. GFR is reported in mL/min/1.73 sq m. IS THE PATIENT REQUIRED TO BE FASTING? No 08/20/2021 1:54 PM DIRECTOR OF ADVERTISING SALES [facility] Blood Venipuncture / Unknown 08/20/2021 12:58 PM DIRECTOR OF ADVERTISING SALES 08/20/2021 1:35 PM DIRECTOR OF ADVERTISING SALES us Hima Orozco MD CHEMISTRY ORDERABLES Final Resul t [facility] [address] [facility] [place] [address] documented in this encounter Visit Diagnoses Diagnosis Pre-op exam- Primary Preoperative examination, unspecified Pre-op exam Preoperative examination, unspecified Pre-op exam Preoperative examination, unspecified documented in this encounter Additional Health Concerns Infection Onset Date Last Indicated Resolved Time COVID - 19 07/29/2022 07/29/2022 08/08/2022 12:1 6 AM DIRECTOR OF ADVERTISING SALES Influenza 07/29/2022 07/29/2022 08/05/2022 12:1 8 AM DIRECTOR OF ADVERTISING SALES COVID - 19 10/03/2023 10/03/2023 10/03/2023 5:20 PM CDT COVID - 19 05/02/2024 05/02/2024 05/02/2024 2:00 PM CDT Respiratory Rule-Out 05/17/2024 05/17/2024 024 12:13 PM DIRECTOR OF ADVERTISING SALES COVID - 19 05/17/2024 05/17/2024 05/17/2024 12:1 1 PM DIRECTOR OF ADVERTISING SALES Respiratory Rule-Out 08/05/2024 08/05/2024 025 12:51 PM DIRECTOR OF ADVERTISING SALES COVID - 19 11/07/2024 11/07/2024 11/07/2024 12:2 5 PM CDT Assessment Noted Time PHQ-9 Depression Total Score: 0 03/28/20 18 2:15 PM CDT documented as of this encounter Care Teams Chair Relationship Specialty Start Date End Date Jax Sheriff MD [address] [address] PCP - General Family Medicine 02/18/18 04/02/23 Doug Gage MD [address] [address] PCP - General Family Medicine 04/03/23 Dalton Archibald DO Gastroenterology 06/28/15 Scott Blevins MD [address] [place] [address] Scientific Systems Analyst Cardiovascular Disease - Cardiology 02/02/22 05/07/24 Scott Blevins MD [address] [place] [address] Consulting Physician Cardiovascular Disease - Cardiology 03/10/22 08/20/24 Tricia Skinner MD [address] [place] [address] Internal Medicine 03/10/22 Davon Scott MD [address] [place] [address] Consulting Physician Gastroenterology 01/18/23 Ron Contreras MD [address] [place] [address] Consulting Physician Pulmonary Disease 02/26/24 Cheng Schulz MD [address] [address] Consulting Physician Colon and Rectal Surgery 04/17/24 Samantha Forman MD [address] [place] [address] Consulting Physician Internal Medicine 05/06/24 documented as of this encounter
--- OUTSIDE RECORDS SUMMARY | 2024-12-11 13:59 | XMS_ITS | Encounter Summary ---
Author Organization [facility] Address [address] [place] [address] Phone Care Team Providers Care Litigation Services Manager Name Role Phone Dalton Archibald DO Unavailable [phone] Tricia Skinner MD Unavailable [phone] Doug Gage MD Primary Care Provider [phone] Davon Scott MD Unavailable Ron Contreras MD Unavailable Cheng Schulz MD Unavailable Samantha Forman MD Unavailable Reason for Visit * Reason Onset Date Comments Referral 11/17/2024 Encounter Details Date Type Department Care Team ([facility] st Contact Info) Description 11/17/2024 Telephone [facility] [address] [place] [address] Doug Gage MD [address] [address] Referral Social History Tobacco Use Types Packs/Day Years Used Date Smoking Tobacco: Former Cigarettes 0.5 24 1 983 - 2006 Smokeless Tobacco: Never Alcohol Use Standard Drinks/Week Comments Never 0 (1 standard drink = 0.6 oz pur e alcohol) [facility] Utilities Answer Date Recorded In the past 12 months has th [employer], gas, oil, or water company threatened to [...] How often do you attend chur or presybeterian services? More than 4 times per year 10/10/2023 Do you belong to any clubs o r organizations such as bahai groups, unions, fraternal or athletic groups, or [...] Score - Questions 1-9 0 10/0 08/2022 [facility] - [...] place to sleep or slept in a custodial (including now)? No 10/10/2023 Education Answer Date Recorded What is the highest level of school you have completed or the highest degree you have received? Bachelor's degree (e.g., BA, AB, BS) 04/03/2023 Sexually Active [employer] Comments Not Currently Male Comments No Sex and Gender Information Value Date Recorded Sex Assigned at Not on file Legal Sex Female 7:48 AM PLEATING MACHINE OPERATOR Gender Identity Not on file Sexual Orientation Not on file documented as of this encounter Miscellaneous Notes * Telephone Encounter - Charline Fields RN - 11/17/2024 3:28 PM CDT Faxed GI referral successfully to number provided. * Telephone Encounter - Mary Monge RN - 11/17/2024 2:20 PM CDT Situation: Referral Background: Vincent, [employer] with [facility] Gastro[facility]ology is contacting PCP office. He is calling as their office is still awaiting referral. Referral can be faxed to [phone]. Assessment:N/A Recommendation: Upon chart review after call, External Gastroenterology Referral was last placed on11/10/2024. Encounter routed to Office Nurse Pool to notify. Please review and fax referral at earliest convenience. documented in this encounter Plan of Treatment Upcoming Encounters Date Type Department Care Team (Late st Contact Info) Description 05/05/2025 1:00 PM PLEATING MACHINE OPERATOR Office Visit [facility] - Cardiology [facility] [address] [place] [address] Sandra Pierce APRN, CAN DRAGGER [address] [place] [phone] documented as of this encounter Visit Diagnoses Not on filedocumented in this encounter Additional Health Concerns Assessment Noted Time PHQ-9 Depression Total Score: 0 07/04/19 24 1:47 PM PLEATING MACHINE OPERATOR documented as of this encounter Care Teams Litigation Services Manager Relationship Specialty Start Date End Date Doug Gage MD [address] [address] PCP - General Family Medicine 04/03/23 Dalton Archibald DO Gastroenterology 06/28/15 Tricia Skinner MD Internal Medicine 03/10/22 Davon Scott MD [address] [place] [address] Consulting Physician Gastroenterology 01/18/23 Ron Contreras MD [address] [place] [id number] Consulting Physician Pulmonary Disease 02/26/24 Cheng Schulz MD [address] [address] Consulting Physician Colon and Rectal Surgery 04/17/24 Samantha Forman MD [address] [address] Consulting Physician Internal Medicine 05/06/24 documented as of this encounter
[2024-12-11 14:03] LABS: Basophils Absolute Auto 0.1 K/mm3 (0.0-0.1); Basophils Percent Auto 0.6 % (0.2-1.2); Eosinophils Absolute Auto 0.2 K/mm3 (0-0.3); Hematocrit 42.9 % (37.0-47.0); Immature Granulocyte Absolute 0.03 K/mm3 (0.00-0.031); Immature Granulocyte Percent A 0.3 % (0-0.5); Lymphocytes Absolute Auto 2.83 K/mm3 (0.9-3.2); Lymphocytes Percent Auto 25.4 % (18.3-44.2); Mean Corpuscular HGB Conc 32.6 g/dl (32-36); Mean Corpuscular Hemoglobin 29.1 pg (26-34); Mean Corpuscular Volume 89.2 fl (80-100); Mean Platelet Volume 9.1 fl (7.4-10.4); Monocytes Absolute Auto 0.7 K/mm3 (0.1-0.6); Monocytes Percent Auto 5.8 % (2.6-8.5); Neutrophils Absolute Auto 7.4 K/mm3 (1.3-6.7); Neutrophils Percent Auto 65.9 % (45.5-73.1); Platelet Count Result 298 k/mm3 (150-375); Red Blood Count 4.81 M/mm3 (4.2-5.4); Red Cell Distribution Width 13.4 % (11.5-14.5); White Blood Count 11.2 K/mm3 (4.5-10.0)
--- NOTE | 2024-12-11 14:07 | ED_ITS ---
HPI - Abdominal Pain General Chief Complaint: Abdominal Pain Stated Complaint: infection around g tube Time Seen by Provider: 12/11/24 13:10 Source: patient Mode of arrival: ambulatory Limitations: no limitations History of Present Illness HPI narrative: Patient is a 59-year-old female who presents the ED with report of PEG-tube site infection. 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 Reports her internal organs shifted after the lung removal and her esophagus became tortuous around her aorta. She has had difficulty keeping down solids since that time. Received a PEG tube for parental nutrition around 2 years ago, but has not been using this over the past few months as she has been able to tolerate enough p.o. caloric intake to maintain steady weight. She reports she had an infection around the G-tube site in June and received Keflex at that time. She has been trying to get in to see a GI specialist for quite some time to have the PEG tube removed. Over the last month, she has developed signs of infection again, including increased pain, redness, swelling, drainage from around G-tube site. She saw our GI team today and was referred to the ED for further evaluation. Patient denies fevers. Denies diarrhea or constipation. Related Data Home Medications ?Medication ?Instructions ?Recorded ?Confirmed ?Last Taken ?Type albuterol sulfate 2.5 mg/3 mL 2.5 mg inhalation Q6H 05/19/19 12/11/24 06/30/19 History (0.083 %) solution for nebulization cetirizine 10 mg tablet (Zyrtec) 10 mg PO DAILY 05/19/19 12/11/24 06/30/19 History diltiazem HCl 120 mg 120 mg PO DAILY 05/19/19 12/11/24 06/30/19 History tablet,extended release 24 hr epinephrine 0.3 mg/0.3 mL 0.3 mg IM ONCE 05/19/19 12/11/24 Unknown History injection, auto-injector (EpiPen 2-Jose Armando) milnacipran 50 mg tablet (Savella) 50 mg PO BID 05/19/19 12/11/24 06/30/19 History fluticasone fur. 100 mcg-umeclid 1 inh inhalation DAILY 06/30/19 12/11/24 06/30/19 History 62.5 mcg-vilant 25 mcg inhalat.powder (Trelegy Ellipta) multivitamin with minerals-folic 0.4 mg PO DAILY 06/30/19 12/11/24 06/30/19 History acid 0.4 mg tablet (Adult One Daily Multivitamin) lactose-reduced food with fiber See Rx Instructions feeding tube 12/08/22 12/11/24 Unknown History 0.06 gram-1.2 kcal/mL oral liquid TID (Jevity 1.2 Shravan) Allergies Allergy/AdvReac Type Severity Reaction Status Date / Time NSAIDS (Non-Steroidal Allergy Severe THROAT AND Verified 12/11/24 10:44 Anti-Inflamma TONGUE SWELLING-REQUIRED INTUBATION aspirin Allergy Unknown Unknown Verified 12/11/24 10:44 ibuprofen Allergy Unknown Unknown Verified 12/11/24 10:44 metronidazole Allergy Unknown Unknown Verified 12/11/24 10:44 spectinomycin Allergy Unknown Throat Verified 12/11/24 10:44 Tae Review of Systems 2 Review of Systems: All systems reviewed & are unremarkable except as noted in HPI. All systems reviewed & are unremarkable except as noted in HPI and below PMFSH Past Medical History Medical History BMI 38.0-38.9,adult Screening mammogram, encounter for LUQ pain BMI greater than 40 Right arm pain SOB (shortness of breath) Screening for breast cancer Screening for lipoid disorders Subcutaneous nodules, generalized Tender lymph node Tinea corporis Vitamin B12 deficiency Weight loss Hip bursitis, left Lumbar pain with radiation down left leg History of colon polyps Diet-controlled diabetes mellitus History of nephrolithiasis Degenerative joint disease Sigmoid diverticulitis History of angioedema Requiring mechanical ventilation in January 2016, attributed to anaphylaxis from aspirin and ibuprofen. Histoplasmosis Attributed to exposure to chicken maneuver while in the [facility]. Status post left pneumonectomy in 2012. Paroxysmal atrial fibrillation Not on long-term anticoagulation. Diastolic congestive heart failure Echocardiogram in July 2015 showed an ejection fraction of 50%. Mild pulmonary hypertension Noted on echocardiogram in July 2015 with an estimated peak RVSP of 46 mmHg. COPD (chronic obstructive pulmonary disease) Chronic respiratory failure with hypoxia Surgical History Surgical History History of shoulder surgery Status post panniculectomy History of lumpectomy of left breast With benign histology. History of cardiac catheterization December 2014 showing normal coronary arteries. History of hand surgery Right hand surgery with fasciotomy due to compartment syndrome after a skiing accident. History of section Status post left knee replacement History of mandibular surgery For temporomandibular joint syndrome. Status post small bowel resection At the time of incarcerated hernia repair. Status post appendectomy Status post cholecystectomy Status post total abdominal hysterectomy and bilateral salpingo-oophorectomy History of hernia repair Incarcerated hernia with partial bowel resection Status post pneumonectomy Left pneumonectomy in 2012 for histoplasmosis. Family History Family History Father Diabetes mellitus Family history of cardiovascular disease Family history of Parkinson's disease Carcinoma of colon Family history of heart disease in male family member before age 55 Hypertension Family history of coronary artery disease Family history of type 1 diabetes mellitus Heart disease Mother Hypertension Family history of malignant neoplasm of breast in first degree relative Diabetes mellitus Breast cancer Sibling Family history of malignant neoplasm of breast in first degree relative Breast cancer Grandparent Carcinoma of colon Malignant neoplasm of prostate Family history of pancreatic cancer Family history of primary malignant neoplasm of liver Other Cerebrovascular accident Social History Social History Social History: The patient lives in [place], [place]. She designates her mother, Yola, as her surrogate decision maker. She wishes to be a full code. she is a former smoker and quit in 2006. She denies alcohol and drug abuse. Smoking packs per day: 0.5 Smoking cigarettes per day: 10.0 Years smoked: 14 Smoking pack-years: 7.00 Smoking status: Former smoker Tobacco type: cigarettes Second hand tobacco smoke exposure: Yes Alcohol intake: never Substance use: never Substance use type: does not use Do You Feel Safe in your Home?: Yes Lack of Transportation: No Lack of Food: Never True Current Housing: I Have Housing Concerned About Future Housing: No Difficulty Paying Gas/Electric Bills: No Difficulty Paying for Meds: No Currently Unemployed: No Education: Bachelor's Degree Difficulty w/ Childcare or Family Care: No Living arrangements: with family Occupation/Education: retired 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 HEAD: Normocephalic, atraumatic. RESPIRATORY: Airway patent, respirations nonlabored. Clear to auscultation bilaterally, no rales, rhonchi, wheezing. CARDIOVASCULAR: Regular rate and rhythm without murmurs, rubs, or gallops. ABDOMINAL: G-tube site with mild surrounding erythema and superficial ulceration inferior to stoma. No purulent drainage. Moderate focal TTP just to the R of G- tube site. Less severe tenderness surrounding G-tube site. No significant tenderness throughout remainder of abdomen. Nondistended. Normoactive BS. MUSCULOSKELETAL: Moves all extremities. No gross deformities. SKIN: Warm, dry, normal color. NEURO: A&O X3. Speech clear. Cranial nerves II-XII grossly intact. Steady gait. No ataxic movements. PSYCHIATRIC: Appropriate mood and affect. Normal interaction. Course Vital Signs Vital signs: Vital Signs Temperature 98.6 F 12/11/24 13:01 Pulse Rate 86 12/11/24 13:01 Respiratory Rate 18 12/11/24 13:01 Blood Pressure 138/74 12/11/24 13:01 Pulse Oximetry 98 12/11/24 13:01 Oxygen Delivery Room Air 12/11/24 13:01 Temperature 98.6 F 12/11/24 13:01 Pulse Rate 71 12/11/24 16:00 Respiratory Rate 18 12/11/24 16:00 Blood Pressure 114/67 12/11/24 16:00 Pulse Oximetry 97 12/11/24 16:00 Oxygen Delivery Room Air 12/11/24 13:01 MDM - Abdominal Pain MDM Narrative Medical decision making narrative: Patient presented to ED with concern for PEG-tube site infection. History of histoplasmosis. No longer needing/using PEG-tube. Sent down to the ED from GI office. Vital signs are stable upon arrival. Patient is afebrile here. Mildly uncomfortable appearing. Pain medication ordered. Laboratory studies with mild leukocytosis of 11.2. CMP is unremarkable. Lactic acid within normal range at 0.9. Blood cultures were obtained. CT scan of chest/abdomen/pelvis was obtained and showing thickening of the soft tissues in the anterior wall surrounding the G-tube site, no fluid collections seen. Consistent with cellulitis. Will treat for such. Discussed case with Dr. Kennedy GI, recommended 1 week of Augmentin and to remove PEG-tube in the ED. Follow-up in clinic. Patient is in agreement this plan. PEG tube was removed without issue. Patient tolerated procedure well. Will be discharged on antibiotics and advised to follow-up with GI within the next 1-2 weeks. She is in agreement this plan. Discussed very strict return precautions. She voiced understanding. Discharged in stable condition. Medical Records Attestation: I reviewed the patient's medical records. Lab Data Attestation: I reviewed the patient's lab results. 12/11/24 13:56 12/11/24 13:56 Labs: Lab Results 12/11/24 Range/Units 13:56 WBC 11.2 H (4.5-10.0) K/mm3 RBC 4.81 (4.2-5.4) M/mm3 Hgb 14.0 (12.0-15.0) g/dL Hct 42.9 (37.0-47.0) % MCV 89.2 (80-100) fl MCH 29.1 (26-34) pg MCHC 32.6 (32-36) g/dl RDW 13.4 (11.5-14.5) % Plt Count 298 (150-375) k/mm3 MPV 9.1 (7.4-10.4) fl Immature Gran % (Auto) 0.3 (0-0.5) % Neut % (Auto) 65.9 (45.5-73.1) % Lymph % (Auto) 25.4 (18.3-44.2) % Nance % (Auto) 5.8 (2.6-8.5) % Eos % (Auto) 2.0 (0-4.4) % Baso % (Auto) 0.6 (0.2-1.2) % Lymph # (Auto) 2.83 (0.9-3.2) K/mm3 Nance # (Auto) 0.7 H (0.1-0.6) K/mm3 Eos # (Auto) 0.2 (0-0.3) K/mm3 Baso # (Auto) 0.1 (0.0-0.1) K/mm3 Abs Immat Gran (auto) 0.03 (0.00-0.031) K/mm3 Absolute Neuts (auto) 7.4 H (1.3-6.7) K/mm3 Absolute Nucleated RBC 0.000 (0.0-0.012) K/mm3 Nucleated RBC % 0.0 (0.0-0.2) % PT 13.4 (11.1-14.7) Seconds INR 1.0 APTT 25.9 (22.3-36.8) Seconds Sodium 140 (137-145) mmol/L Potassium 3.8 (3.4-5.0) mmol/L Chloride 101 (98-107) mmol/L Carbon Dioxide 31 H (22-30) mmol/L Anion Gap 8 (4-12) mmol/L BUN 18 H (7-17) mg/dL Creatinine 0.90 (0.7-1.0) mg/dL Estim Creat Clear Calc 72 ml/min Estimated GFR > 60 (59 - ) Glucose 109 (65-110) mg/dL Lactic Acid 0.9 (0.7-2.0) mmol/L Calcium 8.9 (8.4-10.2) mg/dL Total Bilirubin 0.5 (0.2-1.3) mg/dL AST 25 (14-36) U/L ALT 17 (6-35) U/L Alkaline Phosphatase 179 H (38-126) U/L Total Protein 8.1 (6.3-8.2) g/dL Albumin 4.3 (3.5-5.1) g/dL Imaging Data Attestation: I personally reviewed and interpreted this imaging study as follows: Radiologist's impression: ITS Impressions Chest/Abdomen/Pelvis CT 12/11/24 15:18 IMPRESSION: CHEST: 1. Status post left pneumonectomy. 2. 3 mm nodule seen in the right lung base posteriorly. [address] follow-up advised. ABDOMEN/PELVIS: 1. Minimal thickening of the soft tissues in the anterior abdominal wall around the gastrostomy tube which may be inflammatory. Clinical correlation and Follow- up advised. No intra-abdominal fluid collection seen. 2. No evidence of appendicitis, diverticulitis or intestinal obstruction. 3. Fat infiltration of the liver. 4. Small sliding hiatus hernia. 5. Atrophic pancreas. Discharge Plan Discharge Clinical Impression: Cellulitis of abdominal wall, PEG (percutaneous endoscopic gastrostomy) adjustment/replacement/removal Patient Disposition: Home Condition: Stable Instructions: Antibiotic Form, Cellulitis (ED), Abdominal Pain (ED) Additional Instructions: Take antibiotics as prescribed for abdominal wall infection. You may use warm compresses to abdominal wall to help with inflammation. Continue Tylenol as needed for pain. Follow-up with GI for further evaluation within the next 1-2 weeks. Call office tomorrow to make appointment. Return to the ED if you experience worsening or severe pain/swelling/redness of abdomen, fevers, unable to keep down food or drink, or any other symptoms of concern. Patient Language: Citizen Of [place] Prescriptions: New amoxicillin-pot clavulanate 875-125 mg tablet 1 tablet PO Q12H 7 Days Qty: 14 0RF No Action albuterol sulfate 2.5 mg /3 mL (0.083 %) solution for nebulization 2.5 mg INHALATION Q6H Savella 50 mg tablet 50 mg PO BID diltiazem HCl 120 mg tablet extended release 24 hr 120 mg PO DAILY cetirizine [Zyrtec] 10 mg tablet 10 mg PO DAILY epinephrine [EpiPen 2-Jose Armando] 0.3 mg/0.3 mL auto-injector 0.3 mg IM ONCE ondansetron 8 mg tablet,disintegrating 8 mg PO Q12H PRN (Reason: nausea and vomiting) Qty: 20 0RF Jevity 1.2 Shravan 0.06 gram-1.2 kcal/mL liquid See Rx Instructions feeding tube TID Rx Instructions: 350 ml via feeding tube three times a day; furosemide 20 mg tablet 20 mg PO DAILY Qty: 90 3RF Adult One Daily Multivitamin 0.4 mg Tablet 0.4 mg PO DAILY Trelegy Ellipta 100-62.5-25 mcg Blister With Device 1 inh INHALATION DAILY gabapentin 300 mg capsule 300 mg PO TID Qty: 270 0RF Follow-up/Referrals: Alyssa Medrano APRN [Advanced Practice Nurse] - (GI) Merari,Doug Barrios MD [Primary Care Provider] - Time of Disposition: 17:36
[2024-12-11] MEDS: ONDANSETRON INJ 4 MG/2 ML VIAL IV PUSH (14:12)
[2024-12-11] MEDS: MORPHINE SULFATE (*CRX) 4 MG/ML INJ IV PUSH ×2 (14:12→16:57)
[2024-12-11] MEDS: SODIUM CHLORIDE 0.9% IV 1,000 ML 999 ML IV CONT (14:13)
[2024-12-11 14:14] LABS: Alanine Aminotransferase 17 U/L (6-35); Albumin Level 4.3 g/dL (3.5-5.1); Alkaline Phosphatase 179 U/L (38-126); Anion Gap 8 mmol/L (4-12); Aspartate Amino Transferase 25 U/L (14-36); Bilirubin,Total 0.5 mg/dL (0.2-1.3); Blood Urea Nitrogen 18 mg/dL (7-17); Calcium 8.9 mg/dL (8.4-10.2); Carbon Dioxide 31 mmol/L (22-30); Chloride 101 mmol/L (98-107); Estimated CRCL calculation 72 ml/min; Estimated Glomerular Filt Rate > 60; Glucose 109 mg/dL (65-110); Lactic Acid Reflex 0.9 mmol/L (0.7-2.0); Potassium 3.8 mmol/L (3.4-5.0); Sodium 140 mmol/L (137-145); Total Protein 8.1 g/dL (6.3-8.2)
[2024-12-11 14:26] LABS: Prothrombin Time 13.4 Seconds (11.1-14.7)
[2024-12-11 14:27] LABS: Partial Thromboplastin Time 25.9 Seconds (22.3-36.8)
[2024-12-11 16:00] VITALS: BP 114/67; PULSE 71; RESP 18; O2SAT 97
[2024-12-11] MEDS: AMOXICILLIN/CLAVULANATE K 875-125 MG TAB 1 TABLET PO (16:54)
[2024-12-11 18:06] VITALS: BP 112/78; PULSE 70; RESP 15; O2SAT 96
== END 2024-12-11 18:07 | disposition home or self-care (01) ==
PROVIDERS: Emergency Provider Physician Assistant; PCP Internal Medicine
DX: K94.22 Gastrostomy infection (principal); L03.311 Cellulitis of abdominal wall; I48.0 Paroxysmal atrial fibrillation; I50.30 Unspecified diastolic (congestive) heart failure; J44.9 Chronic obstructive pulmonary disease, unspecified; J96.11 Chronic respiratory failure with hypoxia; E53.8 Deficiency of other specified B group vitamins; E11.9 Type 2 diabetes mellitus without complications; Z96.652 Presence of left artificial knee joint; Z86.19 Personal history of other infectious and parasitic diseases; Z87.442 Personal history of urinary calculi; Z87.891 Personal history of nicotine dependence; Z90.49 Acquired absence of other specified parts of digestive tract; Z90.710 Acquired absence of both cervix and uterus; Z90.79 Acquired absence of other genital organ(s); Z90.722 Acquired absence of ovaries, bilateral; Z90.2 Acquired absence of lung [part of]; R91.1 Solitary pulmonary nodule; K76.0 Fatty (change of) liver, not elsewhere classified; K44.9 Diaphragmatic hernia without obstruction or gangrene; K86.89 Other specified diseases of pancreas; Z79.899 Other long term (current) drug therapy
CPT/HCPCS: 36415; 71260; 74177; 80053; 83605; 85025; 85610; 85730; 87040; 96361; 96374; 96375; 96376; 99284; A9270; J2270; J2405; J7030; Q9967

== ENCOUNTER 2025-03-04 01:45 | Day surgery (SDC) | payer MEDICARE, SELFPAY ==
[2025-02-20 11:14] VITALS: BMI 36.2
--- NOTE | 2025-03-04 13:07 | WPDANESEPPF ---
Anes - Initial Pre Proc Eval Procedure: Operation Date: 03/04/25 14:30 Proposed Procedures p Esophagogastroduodenoscopy - David Guillory MD Date/Time: 03/04/25 13:07 Surgeon: David Guillory MD Pre Op Diagnosis: Melena Patient Data Age: 60 Gender: F Height: 1.7 m Weight: 105 kg Allergies Allergy/AdvReac Type Severity Reaction Status Date / Time NSAIDS (Non-Steroidal Allergy Severe THROAT AND Verified 03/04/25 13:21 Anti-Inflamma TONGUE SWELLING-REQUIRED INTUBATION aspirin Allergy Unknown Unknown Verified 03/04/25 13:21 ibuprofen Allergy Unknown Unknown Verified 03/04/25 13:21 metronidazole Allergy Unknown Unknown Verified 03/04/25 13:21 spectinomycin Allergy Unknown Throat Verified 03/04/25 13:21 Swells Home Medications ?Medication ?Instructions ?Recorded ?Confirmed ?Type albuterol sulfate 2.5 mg/3 mL 2.5 mg inhalation Q6H 05/19/19 03/04/25 History (0.083 %) solution for nebulization cetirizine 10 mg tablet (Zyrtec) 10 mg PO DAILY 05/19/19 03/04/25 History diltiazem HCl 120 mg 120 mg PO DAILY 05/19/19 03/04/25 History tablet,extended release 24 hr epinephrine 0.3 mg/0.3 mL 0.3 mg IM ONCE 05/19/19 02/20/25 History injection, auto-injector (EpiPen 2-Jose Armando) milnacipran 50 mg tablet (Savella) 50 mg PO BID 05/19/19 03/04/25 History fluticasone fur. 100 mcg-umeclid 1 inh inhalation DAILY 06/30/19 03/04/25 History 62.5 mcg-vilant 25 mcg inhalat.powder (Trelegy Ellipta) multivitamin with minerals-folic 0.4 mg PO DAILY 06/30/19 03/04/25 History acid 0.4 mg tablet (Adult One Daily Multivitamin) gabapentin 300 mg capsule 300 mg PO TID #270 caps 05/20/22 03/04/25 Rx furosemide 20 mg tablet 20 mg PO DAILY #90 tabs 12/08/22 02/20/25 Rx ergocalciferol (vitamin D2) 1,250 1,250 mcg PO WEEKLY 01/01/25 03/04/25 History mcg (50,000 unit) capsule (Vitamin D2) Patient hx anesthesia problems: none Family hx anesthesia problems: none Results Review: All pre-operative results and documents have been reviewed as part of the pre-operative evaluation. [facility] Past Medical History Medical History (Updated 03/03/25 @ 13:27 by Chance Pacheco DO) CHF (congestive heart failure) BMI 38.0-38.9,adult Screening mammogram, encounter for LUQ pain BMI greater than 40 Right arm pain SOB (shortness of breath) Screening for breast cancer Screening for lipoid disorders Subcutaneous nodules, generalized Tender lymph node Tinea corporis Vitamin B12 deficiency Weight loss Hip bursitis, left Lumbar pain with radiation down left leg History of colon polyps Diet-controlled diabetes mellitus History of nephrolithiasis Degenerative joint disease Sigmoid diverticulitis History of angioedema Requiring mechanical ventilation in January 2016, attributed to anaphylaxis from aspirin and ibuprofen. Histoplasmosis Attributed to exposure to chicken maneuver while in the [facility]. Status post left pneumonectomy in 2012. Paroxysmal atrial fibrillation Not on long-term anticoagulation. Diastolic congestive heart failure Echocardiogram in July 2015 showed an ejection fraction of 50%. Mild pulmonary hypertension Noted on echocardiogram in July 2015 with an estimated peak RVSP of 46 mmHg. COPD (chronic obstructive pulmonary disease) Chronic respiratory failure with hypoxia Surgical History Surgical History History of shoulder surgery Status post panniculectomy History of lumpectomy of left breast With benign histology. History of cardiac catheterization December 2014 showing normal coronary arteries. History of hand surgery Right hand surgery with fasciotomy due to compartment syndrome after a skiing accident. History of section Status post left knee replacement History of mandibular surgery For temporomandibular joint syndrome. Status post small bowel resection At the time of incarcerated hernia repair. Status post appendectomy Status post cholecystectomy Status post total abdominal hysterectomy and bilateral salpingo-oophorectomy History of hernia repair Incarcerated hernia with partial bowel resection Status post pneumonectomy Left pneumonectomy in 2012 for histoplasmosis. Family History Family History Father Diabetes mellitus Family history of cardiovascular disease Family history of Parkinson's disease Carcinoma of colon Family history of heart disease in male family member before age 55 Hypertension Family history of coronary artery disease Family history of type 1 diabetes mellitus Heart disease Mother Hypertension Family history of malignant neoplasm of breast in first degree relative Diabetes mellitus Breast cancer Sibling Family history of malignant neoplasm of breast in first degree relative Breast cancer Grandparent Carcinoma of colon Malignant neoplasm of prostate Family history of pancreatic cancer Family history of primary malignant neoplasm of liver Other Cerebrovascular accident Social History Social History Social History: The patient lives in [place], [place]. She designates her mother, Yola, as her surrogate decision maker. She wishes to be a full code. she is a former smoker and quit in 2006. She denies alcohol and drug abuse. Smoking packs per day: 0.5 Smoking cigarettes per day: 10.0 Years smoked: 14 Smoking pack-years: 7.00 Smoking status: Former smoker Tobacco type: cigarettes Second hand tobacco smoke exposure: Yes Alcohol intake: never Substance use: never Substance use type: does not use Do You Feel Safe in your Home?: Yes Lack of Transportation: No Lack of Food: Never True Current Housing: I Have Housing Concerned About Future Housing: No Difficulty Paying Gas/Electric Bills: No Difficulty Paying for Meds: No Currently Unemployed: No Education: Bachelor's Degree Difficulty w/ Childcare or Family Care: No Living arrangements: alone Occupation/Education: retired 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) Gender identity (if verbalized by the patient): Female Spiritual care concerns: Yes Agree to blood products: Yes Anes - Eval Final PreProcedure Day of Procedure 03/04/25 13:07 Patient weight: obese Heart: regular rate and rhythm Lungs: clear to auscultation Airway: Mallampati scale class II Neurological: alert and oriented Last oral intake: >/= 8 hours ASA classification: IV Emergent: no Anesthetic plan: proceed Anesthesia type and monitoring: general GIVS and standard monitoring Results Review: All pre-operative results and documents have been reviewed as part of the pre-operative evaluation. Informed Consent: The patient's anesthetic plan and its attendant risks and benefits were discussed with the patient/family/POA. Questions were solicited and answers provided to the satisfaction of the patient/family/POA.
[2025-03-04 13:23] VITALS: BP 113/82; PULSE 81; RESP 18; TEMP 36.7; O2SAT 98; BMI 36.8
[2025-03-04] MEDS: LACTATED RINGERS 1,000 ML 150 ML IV CONT (13:49)
--- NOTE | 2025-03-04 14:05 | P.HP_ITS ---
History of Present Illness History of Present Illness Consent: Risks, benefits, and alternatives have been discussed and questions answered. Patient agrees to proceed with procedure. Chief complaint: Melena Narrative: Drew Roche is a 60 year old female here for egd, recently PEG tube was removed because pain at site of insertion, she has esophageal dysmotility and tortuous esophagus, peg placed originally at [facility], she is eating liquid/pureed. She thinks that gastrostomy still is not fully closed. Review of Systems Review of Systems: All systems reviewed & are unremarkable except as noted in HPI and below [facility] Past Medical History Medical History (Updated 03/03/25 @ 13:27 by Chance Pacheco, ) CHF (congestive heart failure) BMI 38.0-38.9,adult Screening mammogram, encounter for LUQ pain BMI greater than 40 Right arm pain SOB (shortness of breath) Screening for breast cancer Screening for lipoid disorders Subcutaneous nodules, generalized Tender lymph node Tinea corporis Vitamin B12 deficiency Weight loss Hip bursitis, left Lumbar pain with radiation down left leg History of colon polyps Diet-controlled diabetes mellitus History of nephrolithiasis Degenerative joint disease Sigmoid diverticulitis History of angioedema Requiring mechanical ventilation in January 2016, attributed to anaphylaxis from aspirin and ibuprofen. Histoplasmosis Attributed to exposure to chicken maneuver while in the [facility]. Status post left pneumonectomy in 2012. Paroxysmal atrial fibrillation Not on long-term anticoagulation. Diastolic congestive heart failure Echocardiogram in July 2015 showed an ejection fraction of 50%. Mild pulmonary hypertension Noted on echocardiogram in July 2015 with an estimated peak RVSP of 46 mmHg. COPD (chronic obstructive pulmonary disease) Chronic respiratory failure with hypoxia Surgical History Surgical History History of shoulder surgery Status post panniculectomy History of lumpectomy of left breast With benign histology. History of cardiac catheterization December 2014 showing normal coronary arteries. History of hand surgery Right hand surgery with fasciotomy due to compartment syndrome after a skiing accident. History of section Status post left knee replacement History of mandibular surgery For temporomandibular joint syndrome. Status post small bowel resection At the time of incarcerated hernia repair. Status post appendectomy Status post cholecystectomy Status post total abdominal hysterectomy and bilateral salpingo-oophorectomy History of hernia repair Incarcerated hernia with partial bowel resection Status post pneumonectomy Left pneumonectomy in 2012 for histoplasmosis. Family History Family History Father Diabetes mellitus Family history of cardiovascular disease Family history of Parkinson's disease Carcinoma of colon Family history of heart disease in male family member before age 55 Hypertension Family history of coronary artery disease Family history of type 1 diabetes mellitus Heart disease Mother Hypertension Family history of malignant neoplasm of breast in first degree relative Diabetes mellitus Breast cancer Sibling Family history of malignant neoplasm of breast in first degree relative Breast cancer Grandparent Carcinoma of colon Malignant neoplasm of prostate Family history of pancreatic cancer Family history of primary malignant neoplasm of liver Other Cerebrovascular accident Social History Social History Social History: The patient lives in [place], [place]. She designates her mother, Yola, as her surrogate decision maker. She wishes to be a full code. she is a former smoker and quit in 2006. She denies alcohol and drug abuse. Smoking packs per day: 0.5 Smoking cigarettes per day: 10.0 Years smoked: 14 Smoking pack-years: 7.00 Smoking status: Former smoker Tobacco type: cigarettes Second hand tobacco smoke exposure: Yes Alcohol intake: never Substance use: never Substance use type: does not use Do You Feel Safe in your Home?: Yes Lack of Transportation: No Lack of Food: Never True Current Housing: I Have Housing Concerned About Future Housing: No Difficulty Paying Gas/Electric Bills: No Difficulty Paying for Meds: No Currently Unemployed: No Education: Bachelor's Degree Difficulty w/ Childcare or Family Care: No Living arrangements: alone Occupation/Education: retired Additional 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 ([employer]) Gender identity (if verbalized by the patient): Female Spiritual care concerns: Yes Agree to blood products: Yes Meds Home Medications and Allergies Home Medications ?Medication ?Instructions ?Recorded ?Confirmed ?Type albuterol sulfate 2.5 mg/3 mL 2.5 mg inhalation Q6H 03/04/25 History (0.083 %) solution for nebulization cetirizine 10 mg tablet (Zyrtec) 10 mg PO DAILY 03/04/25 History diltiazem HCl 120 mg 120 mg PO DAILY 05/19/1909/23 History tablet,extended release 24 hr epinephrine 0.3 mg/0.3 mL 0.3 mg IM ONCE 05/19/1901/31 History injection, auto-injector (EpiPen 2-Jose Armando) milnacipran 50 mg tablet (Savella) 50 mg PO BID 03/04/25 History fluticasone fur. 100 mcg-umeclid 1 inh inhalation SHAHZAD Y 06/30/19 03/04/25 History 62.5 mcg-vilant 25 mcg inhalat.powder (Trelegy Ellipta) multivitamin with minerals-folic 0.4 mg PO DAILY 06/3003/04/25 History acid 0.4 mg tablet (Adult One Daily Multivitamin) gabapentin 300 mg capsule 300 mg PO TID #270 caps 05/0203/04/25 Rx furosemide 20 mg tablet 20 mg PO DAILY #90 tabs 03/2402/20/25 Rx ergocalciferol (vitamin D2) 1,250 1,250 mcg PO WEEKLY 01/01/25 03/04/25 History mcg (50,000 unit) capsule (Vitamin D2) Allergies Allergy/AdvReac Type Severity Reaction Status Date / Time NSAIDS (Non-Steroidal Allergy Severe THROAT AND Verified 03/04/25 13:21 Anti-Inflamma TONGUE SWELLING-REQUIRED INTUBATION aspirin Allergy Unknown Unknown Verified 03/04/25 13:21 ibuprofen Allergy Unknown Unknown Verified 03/04/25 13:21 metronidazole Allergy Unknown Unknown Verified 03/04/25 13:21 spectinomycin Allergy Unknown Throat Verified 03/04/25 13:21 Swells Vital Signs Vital Signs - 24 hr 03/04/25 13:23 Temperature 98.1 F Pulse Rate 81 Respiratory Rate 18 Blood Pressure 113/82 Pulse Oximetry 98 Oxygen Delivery Room Air Exam Const: General: cooperative and comfortable HENMT: Head: normal to inspection Resp: Effort & Inspection: normal respiratory effort GI: Other: gastrostomy site with minimal discomfort Assessment and Plan Assessment and plan (1) Dysphagia: Qualifiers: Dysphagia type: pharyngoesophageal phase Qualified Code(s): R13.14 - Dysphagia, pharyngoesophageal phase Code(s): R13.10 - Dysphagia, unspecified Status: Acute Assessment and Plan: egd to assess
[2025-03-04 14:13] VITALS: BP 108/68; PULSE 86; RESP 23; O2SAT 94
[2025-03-04 14:23] VITALS: BP 104/67; PULSE 82; RESP 20; O2SAT 94
[2025-03-04 14:33] VITALS: BP 102/86; PULSE 75; RESP 18; O2SAT 95
== END 2025-03-04 14:38 | disposition home or self-care (01) ==
PROVIDERS: PCP Internal Medicine; Referring Provider Nurse Practitioner Family; Visit Provider Internal Medicine Gastroenterology
PROC: 0DJ08ZZ Inspection of Upper Intestinal Tract, Via Natural or Artificial Opening Endoscopic (ICD-10-PCS; CPT 43235; principal; 2025-03-04 14:30)
DX: K22.4 Dyskinesia of esophagus (principal); Z98.890 Other specified postprocedural states; Z87.891 Personal history of nicotine dependence; E66.9 Obesity, unspecified; Z68.36 Body mass index [BMI] 36.0-36.9, adult
CPT/HCPCS: 43235; J2704; J7120